=== PATIENT | female | born 1935 | race Caucasian/White ===

== ENCOUNTER 2016-07-20 11:19 | Emergency (ER) | payer MEDICARE ==
[2016-07-20 12:17] VITALS: BP 122/60
--- NOTE | 2016-07-20 12:39 | UC ---
Lower Extremity/Ankle HPI - HPI Summary HPI Summary: believes she twisted her ankle a few days ago---did not fall has lateral right pain and calf pain - History of Current Complaint Chief Complaint: UCLowerExtremity Stated Complaint: ANKLE INJURY Time Seen by Provider: 07/20/16 12:30 Hx Obtained From: Patient, Family/Group Insurance Special Agent ?: No Onset/Duration: Sudden Onset, Lasting Days - 4, Still Present Severity Initially: Moderate Severity Currently: Moderate Pain Intensity: 4 Pain Scale Used: 0-10 Numeric Aggravating Factor(s): Standing, Ambulation Alleviating Factor(s): Rest, Elevation Able to Bear Weight: Yes - with walker and kelly wrap - Allergies/Home Medications Allergies/Adverse Reactions: Allergies Allergy/AdvReac Type Severity Reaction Status Date / Time Codeine Allergy Severe Hives Verified 01/08/14 07:52 ANESTHETICS, GENERAL AdvReac Unknown Altered Uncoded 01/08/14 07:53 Mental Status PMH/Surg Hx/FS Hx/Imm Hx Previously Healthy: No Endocrine History Of: Reports: Thyroid Disease - HYPOTHYROID Denies: Diabetes Cardiovascular History Of: Reports: Cardiac Disorders - prolapsed heart valve, "weakening of cardiac muscle r/t radiation " Denies: Hypertension, Pacemaker/ICD, Congestive Heart Failure, Deep Vein Thrombosis Respiratory History Of: Reports: Pneumonia Denies: COPD, Asthma, Pulmonary Embolism GI/ History Of: Reports: Ulcer - 15 YRS AGO, Gall Bladder Disease Denies: Gastrointestinal Bleed, Kidney Stones, Renal Disease Neurological History Of: Denies: TIA, CVA, Dementia, Seizures, Migraine Psychological History Of: Denies: Anxiety, Depression, Bipolar Disorder, Schizophrenia Cancer History Of: Reports: Breast Cancer - LEFT 2008 Denies: Lung Cancer Other History Of: Anticoagulant Therapy - Surgical History Surgical History: Yes Surgery Procedure, Year, and Place: lt hip replacement total hysterectomy lt elbow with a plate in it lt knee replacement rt knee replacement appendix gallbladder lt lumpectomy - Family History Known Family History: Positive: Cardiac Disease, Hypertension - Social History Occupation: Retired Lives: With Family Alcohol Use: None Substance Use Type: None Smoking Status (MU): Former Smoker Have You Smoked in the Last Year: No - Immunization History Most Recent Influenza Vaccination: 2012 Most Recent Tetanus Shot: UTD Most Recent Pneumonia Vaccination: NEVER Review of Systems Constitutional: Negative Skin: Negative Eyes: Negative ENT: Negative Respiratory: Negative Cardiovascular: Negative Gastrointestinal: Negative Genitourinary: Negative Motor: Negative Neurovascular: Negative Musculoskeletal: Arthralgia - Right ankle, Myalgia - Right CAlf Neurological: Negative Psychological: Negative All Other Systems Reviewed And Are Negative: Yes Physical Exam Triage Information Reviewed: Yes Appearance: Well-Nourished, Ill-Appearing - chronic illness, Pain Distress - mild Vital Signs: Initial Vital Signs Temp 97.7 F 07/20/16 12:12 Pulse 109 07/20/16 12:12 Resp 18 07/20/16 12:12 BP 122/60 07/20/16 12:12 Pulse Ox 97 07/20/16 12:12 Vital Signs Reviewed: Yes Eye Exam: Normal Eyes: Positive: Conjunctiva Clear ENT Exam: Normal ENT: Positive: Normal ENT inspection, Hearing grossly normal. Negative: Nasal congestion, Nasal drainage, Trismus, Muffled/hoarse voice Neck exam: Normal Neck: Positive: Supple, Nontender, No Lymphadenopathy Respiratory Exam: Normal Respiratory: Positive: Chest non-tender, Lungs clear, Normal breath sounds, No respiratory distress, No accessory muscle use Cardiovascular Exam: Normal Cardiovascular: Positive: RRR, No Murmur, Pulses Normal, Brisk Capillary Refill Musculoskeletal Exam: Normal Musculoskeletal: Positive: Strength Intact, ROM Intact, No Edema Neurological Exam: Normal Neurological: Positive: Alert, Muscle Tone Normal Psychological Exam: Normal Psychological: Positive: Normal Response To Family, Abnormal Response To Family Skin Exam: Normal Diagnostics - Laboratory Diagnostic Studies Completed/Ordered: ultra sound --negative for DVT - Radiology No standard instances Xray Interpretation: No Acute Changes Radiology Interpretation Completed By: ED Physician, Radiologist Re-Evaluation - Re-Evaluation First Eval Change: Improved - kelly and gel applied home with family in good contition Lower Extremity Course/Dx - Course Course Of Treatment: kelly, gel, walker, ibuprofen follow with PCP prn - Differential Dx/Diagnosis Differential Diagnosis/HQI/PQRI: Contusion, DVT, Fracture (Closed), Sprain, Strain Provider Diagnoses: Right ankle sprain Discharge - Discharge Plan Condition: Stable Disposition: HOME Patient Education Materials: Ibuprofen (By mouth), Ankle Sprain (ED), RICE Therapy (ED) Referrals: Adelaide Ladd MD [Primary Care Provider] - If Needed
--- NOTE | 2016-07-20 13:56 | RAD ---
INDICATION: Right ankle injury. TECHNIQUE: 3 views of the right ankle were obtained. FINDINGS: The bones are in normal alignment. No fracture is seen. Joint spaces appear maintained. IMPRESSION: NO EVIDENCE FOR FRACTURE.
--- NOTE | 2016-07-20 13:59 | RAD ---
INDICATION: Right lower leg injury. TECHNIQUE: 2 views of the right lower leg were obtained. FINDINGS: The patient is status post total knee replacement surgery. The bones and prostheses are in normal alignment. No fracture is seen. IMPRESSION: Postsurgical changes, no evidence for fracture.
--- NOTE | 2016-07-20 14:42 | RAD ---
INDICATION: Right calf pain, history of breast cancer, injury. COMPARISON: There are no prior studies available for comparison. TECHNIQUE: Multiple real-time, color flow and Doppler tracings of the right lower extremity were obtained. FINDINGS: The common femoral, femoral, profunda femoral and popliteal veins all demonstrate normal compressibility, augmentation with compression and phasic response with respiration. The posterior tibial and peroneal veins demonstrate normal compressibility and augmentation with compression. IMPRESSION: NO EVIDENCE FOR DEEP VENOUS THROMBOSIS.
== END 2016-07-20 15:15 | disposition home or self-care (01) ==
LOC: UCEAST 11:19
DX: S93.401A Sprain of unspecified ligament of right ankle, initial encounter (principal); X50.1XXA Overexertion from prolonged static or awkward postures, initial encounter; Y93.9 Activity, unspecified; Y92.9 Unspecified place or not applicable; Z88.6 Allergy status to analgesic agent; Z88.4 Allergy status to anesthetic agent; Z96.642 Presence of left artificial hip joint; Z96.653 Presence of artificial knee joint, bilateral; Z87.891 Personal history of nicotine dependence
CPT/HCPCS: 99213; G0463

== ENCOUNTER 2016-11-10 12:17 | Observation (INO) | payer MEDICARE ==
[2016-11-10 13:27] LABS: Hematocrit 39 % (35-47); Hemoglobin 12.8 g/dl (12.0-16.0); Mean Corpuscular HGB Conc 33 g/dl (31-36); Mean Corpuscular Hemoglobin 31 pg (27-31); Mean Corpuscular Volume 93 fL (80-97); Mean Platelet Volume 8 um3 (7.4-10.4); Red Blood Count 4.15 10^6/ul (4.0-5.4); Red Cell Distribution Width 13 % (10.5-15); White Blood Count 5.4 10^3/ul (3.5-10.8)
--- NOTE | 2016-11-10 13:34 | RAD ---
HISTORY: Dizziness COMPARISONS: September 20, 2014 VIEWS:1: Single frontal portable view of the chest at 1:15 PM FINDINGS: LINES AND TUBES: None. CARDIOMEDIASTINAL SILHOUETTE: The cardiomediastinal silhouette is normal for portable technique. PLEURA: The costophrenic angles are sharp. No pleural abnormalities are noted. LUNG PARENCHYMA: There is hyperinflation. There are fibrotic changes of the left upper lung, similar to previous examinations. ABDOMEN: The upper abdomen is clear. There is no subphrenic gas. BONES AND SOFT TISSUES: No bone or soft tissue abnormalities are noted. IMPRESSION: COPD.
[2016-11-10 13:47] LABS: Albumin 3.4 g/dL (3.2-5.2); BUN/Creatinine Ratio 13.3 (8-20); Calcium 9.6 mg/dL (8.6-10.3); EGFR African American 77.7 (>60); EGFR Non-African American 60.4 (>60); Globulin 3.1 g/dL (2-4); Potassium 4.4 mmol/L (3.5-5.0); Total Bilirubin 0.7 mg/dL (0.2-1.0); Total Protein 6.5 g/dL (6.4-8.9)
[2016-11-10 13:48] LABS: Troponin I 0.01 ng/mL (<0.04)
--- NOTE | 2016-11-10 13:52 | RAD ---
INDICATION: Dizziness. Remote CVA COMPARISON: CT brain November 29, 2015 TECHNIQUE: Noncontrast axial source images were acquired from the skull base to the vertex. FINDINGS: Ventricles/sulci: There is cortical atrophy with compensatory dilatation of the CSF spaces. Brain parenchyma: There is no acute focal parenchymal finding, evidence of intracranial mass, or intracranial mass effect. There is encephalomalacia in the left posterior parietal and occipital lobes consistent with prior infarct. Intracranial hemorrhage:None. Extra-axial spaces: There are no abnormal extra axial fluid collections or evidence of extra-axial mass. Calvarium: There is no calvarial fracture or other calvarial abnormality. Scalp: There is no evidence of scalp or extracalvarial soft tissue abnormality. Paranasal sinuses/mastoid: The paranasal sinuses and mastoid air cells are clear. Other: None. IMPRESSION: NO ACUTE INTRACRANIAL FINDINGS. SEQUELA OF PRIOR VASCULAR INSULT.
[2016-11-10 14:09] LABS: TSH (Thyroid Stimulating Horm) 0.06 mcIU/mL (0.34-5.60)
[2016-11-10 14:26] LABS: Urine Bacteria Absent (Absent); Urine Bilirubin Negative (Negative); Urine Glucose Negative (Negative); Urine Nitrite Negative (Negative)
[2016-11-10] MEDS ORDERED: Ondansetron INJ* 2 MG/ML VIAL IV ONE (15:36)
[2016-11-10] MEDS ORDERED: HYDROmorphone* 1 MG/ML 1 ML SYR IV ONE (15:36)
[2016-11-10] MEDS ORDERED: Ondansetron INJ* 2 MG/ML VIAL IV PRN (16:35)
[2016-11-10] MEDS ORDERED: Levothyroxine TAB* 150 MCG TAB PO SCH (17:00)
[2016-11-10 17:19] LABS: T4 7.58 mcg/mL (6.09-12.23)
[2016-11-10 17:23] LABS: Free T3 3.5 pg/mL (2.5-3.9)
[2016-11-10 17:27] LABS: Total T3 0.8 ng/mL (0.87-1.78)
[2016-11-10 17:28] LABS: Free T4 1.32 ng/dL (0.61-1.12)
[2016-11-10] MEDS ORDERED: Donepezil TAB* 5 MG PO SCH (18:00)
[2016-11-10] MEDS: Acetaminophen TAB* 325 MG PO PRN (18:10)
[2016-11-10] MEDS: Meclizine TAB* 12.5 MG PO SCH ×2 (18:10→21:57)
--- NOTE | 2016-11-10 20:47 | HP ---
HISTORY AND PHYSICAL: DATE OF ADMISSION: 11/10/16 PRIMARY CARE PROVIDER: Dr. Ladd. ATTENDING PHYSICIAN WHILE IN THE HOSPITAL: Dr. Chao Colunga *(report dictated by Dylan Arcos NP) CHIEF COMPLAINT: Dizziness. HISTORY OF PRESENT ILLNESS: Ms. Vasquez is a 81-year-old female patient. She carries a history of hypothyroidism, history of TIA, CVA x2, AFib, breast cancer, and history of depression. She comes into the ER today stating that she woke up in the middle of the night last night and had an episode where she felt dizzy, she felt like the room was spinning. She went to the bathroom. When she sat down, she felt okay. However, when she got back up and went back to the bedroom she felt dizzy again. She went and sat down and lied down in her bed, remained still and she felt fine, but if she moves or stood up at all she became dizzy again. The patient was evaluated today by her friend, Lake, who has concerned and had her come into the hospital. She says when she was feeling dizzy, she became nauseous. She also describes having a headache. It is not the worst of her life, but it feels like her head is in a vice and it is a pressure, squeezing pain. She denies having any recent fevers or chills. No recent respiratory type symptoms, no cough, no runny nose, no sore throat. Denies having any ear pain, or discharge or any chest discomfort. She states she did not lose consciousness, but there was concern because she had been having the dizzy spell. She has been having dizzy spells off and on for sometime and has been following closely with Dr. Prince in the outpatient setting , but the daughter was concerned today and they came into the ER and was evaluated, and because of the dizziness we were asked to evaluate for admission. PAST MEDICAL HISTORY: Significant for: 1. Hypothyroidism. 2. Depression. 3. Breast cancer. 4. TIA. 5. CVA x2. 6. AFib. PAST SURGICAL HISTORY: 1. The patient has had right and left knee replacements. 2. Lumpectomy. 3. Left total hip arthroplasty. 4. Cholecystectomy. 5. Hysterectomy. 6. ORIF of the left elbow. HOME MEDICATIONS: Include: 1. Zantac 150 mg p.o. daily. 2. Multivitamin 1 tablet daily. 3. Metoprolol 25 mg in the morning and 12.5 mg at bedtime. 4. Lisinopril 5 mg daily. 5. Synthroid 150 mcg p.o. 6 times a week. 6. Aricept 5 mg daily. 7. Celexa 40 mg daily. 8. Caltrate 1 tablet p.o. daily. 9. Aspirin 81 mg a day. ALLERGIES: Her allergies to medications include CODEINE. FAMILY HISTORY: Her mother had a history of cancer and diabetes. Father had a history of COPD. SOCIAL HISTORY: The patient does not smoke. She does not drink alcohol. She lives at [facility]. Surrogate decision maker is her daughter. REVIEW OF SYSTEMS: There is no documented fever. She denies having any significant weight change. There was no double vision. There is no ear discharge. Denied any rhinorrhea. No sore throat, no thyroid enlargement. Denied having any chest pain. There is no orthopnea. There is no nocturnal dyspnea. There is no abdominal pain. No nausea, no vomiting, no dysuria, no frequency, no loss of consciousness. No pruritus. No skin ulcerations. Review of 14 systems completed, all others negative. PHYSICAL EXAMINATION GENERAL: At this time, Ms. Vasquez is a 81-year-old female patient. She does not appear to be in any acute distress. She is sitting in the ER stretcher. VITAL SIGNS: Reveals blood pressure 138/59, pulse 72, respirations 20, O2 sat 96%, temperature 98.6. HEENT: Head is atraumatic and normocephalic. Eyes: EOMs are intact. Sclerae anicteric, not pale. Throat: Oral mucosa appears to be moist. No oropharyngeal erythema. NECK: Supple. LUNGS: Clear to auscultation. No wheezes, rales, or rhonchi. HEART: Sounds S1, S2. Regular rate and rhythm. No murmurs, rubs, or gallops. ABDOMEN: Soft, flat, nontender. Bowel sounds present. EXTREMITIES: Pulses 2+ throughout. She is able to move all 4 extremities with 5/5 strength. NEUROLOGIC: The patient is awake, she is alert, she is oriented x3. Her speech is clear. Tongue midline. Business Integration Manager are equal. Business Integration Manager intact bilaterally. [id number] intact bilaterally. She had no nystagmus on exam. Cranial nerves are intact. SKIN: Intact. LABORATORY DATA: Today revealed WBC of 5.4, RBC 4.15, hemoglobin 12.8, hematocrit 39, platelet count 110. Sodium 137, potassium of 4.4, chloride of 105, bicarb 28, BUN 12, creatinine 0.90, glucose 100, lactic 1.1, calcium 9.6, total bili 2.0, AST 0.7, ALT 14, alk phos 7, troponin 0.01. Albumin 3.4, TSH of 0.06. Urine showed 3+ leukocyte esterase, 2+ wbc, present squamous epithelial cells. She had an EKG obtained today which revealed a normal sinus rhythm, rate of 67, with PVC. No ST elevations or T-wave inversions were noted. She had a chest x-ray obtained today, showed COPD, but no acute infiltrate on my exam or my review or any acute effusions. CT of the brain showed no acute intracranial findings, sequelae of prior vascular infarct. She had a brain MRI at the end of September which showed left occipital and right anterior partial encephalomalacia consistent with remote infarct. Chronic lacunar infarct to the inferior cerebellar hemisphere bilaterally. Multifocal elevated T2 FLAIR signal in the periventricular and subcortical white matter nonspecific, but suggestive of chronic small vessel ischemic disease. There was a CTA of the head and of the neck which impression: No aneurysm, vascular malformation, occlusion or stenosis of the visualized intracranial circulation. No intracranial artery stenosis by NASCET criteria. Left parietooccipital encephalomalacia. Old medical records reviewed. ASSESSMENT AND PLAN: Ms. Vasquez is a 81-year-old female patient coming into the hospital today with complaints of dizziness. On evaluation in the ER, there was concern because of the dizziness that may represent possible stroke, so the hospitalist service was asked to evaluate for admission. She will be admitted under observation status for: 1. Dizziness. The dizziness is very positional. On exam even just moving her bed, she was becoming dizzy. I question if this may be related to vertigo. I do not see any obvious signs of infection or recent infection to suggest maybe a labyrinthitis. My plan at this point would be to go ahead and try meclizine standing, continue ambulation when she is on this and see if we can improve her symptoms. If we can, then I would consider getting a neurology consult tomorrow and possibly repeating the MRI, but she just had one a few months ago, so I do not see the utility of it at that point. 2. Hypothyroidism. Her TSH is low, so I am going to check free T3 and T4. We may need to adjust her Synthroid. She can follow this in the outpatient setting. 3. Depression. Continue supportive care. 4. History of breast cancer. Follow with her oncologist. 5. History of transient ischemic attack and cerebrovascular accident. Continue with secondary prevention. She is on an aspirin. 6. History of atrial fibrillation. Appears to be in sinus rhythm at this point. One may consider possibly putting her on a blood thinner, but I will defer this to the primary. She certainly has that risk for high CHADS-VASC score, which she would qualify for blood thinners. We will continue the Toprol for rate control. 7. Hypertension. Continue her lisinopril. 8. History of dementia. I do see that she is on Aricept. It is mild dementia. We will go ahead and continue supportive care. 9. DVT prophylaxis. I have ordered heparin subcu. 10. Code status: She is DNR. 11. Fluids electrolytes, and nutrition. She can have a regular diet. TIME SPENT: Time spent on the admission was approximately 60 minutes, greater than half the time was spent [id number] with the patient obtaining my history and physical, and the other half time was spent going over the plan of care with patient and implementing plan of care. I did discuss the plan of care with my attending, Dr. Colunga, he is in agreement. DYLAN ARCOS NP CC: Dr. Ladd * [id number]/[facility] #: [id number] YANI
[2016-11-10] MEDS ORDERED: Metoprolol Succinate XL TAB* 25 MG PO SCH (21:00)
[2016-11-10] MEDS: Heparin VIAL(*) 5000 UNITS/ML VIAL (FIVE THOUSAND) SUBCUT SCH (21:57)
[2016-11-11] MEDS: Acetaminophen TAB* 325 MG PO PRN (04:45)
[2016-11-11] MEDS: Heparin VIAL(*) 5000 UNITS/ML VIAL (FIVE THOUSAND) SUBCUT SCH (05:35)
[2016-11-11] MEDS: Meclizine TAB* 12.5 MG PO SCH (05:35)
[2016-11-11 06:41] LABS: Hematocrit 37 % (35-47); Hemoglobin 12.3 g/dl (12.0-16.0); Mean Corpuscular HGB Conc 33 g/dl (31-36); Mean Corpuscular Hemoglobin 31 pg (27-31); Mean Corpuscular Volume 93 fL (80-97); Mean Platelet Volume 8 um3 (7.4-10.4); Red Blood Count 3.98 10^6/ul (4.0-5.4); Red Cell Distribution Width 13 % (10.5-15); White Blood Count 5.7 10^3/ul (3.5-10.8)
[2016-11-11 06:42] LABS: Add Diff/Slide Review? Slide Review Added; Comments Flag Yes
[2016-11-11 06:44] LABS: BUN/Creatinine Ratio 14.4 (8-20); Calcium 9.3 mg/dL (8.6-10.3); EGFR African American 77.7 (>60); EGFR Non-African American 60.4 (>60); Potassium 3.8 mmol/L (3.5-5.0)
[2016-11-11 08:17] VITALS: BP 124/50
[2016-11-11] MEDS ORDERED: Metoprolol Succinate XL TAB* 25 MG PO SCH (09:00)
[2016-11-11] MEDS ORDERED: Aspirin EC Low Dose* 81 MG TAB.EC PO SCH (09:00)
[2016-11-11] MEDS ORDERED: Citalopram TAB* 40 MG PO SCH (09:00)
[2016-11-11] MEDS ORDERED: Lisinopril TAB* 10 MG PO SCH (09:00)
--- NOTE | 2016-11-11 11:29 | DS ---
DATE OF ADMISSION: 11/10/2016. DATE OF DISCHARGE: 11/11/2016. PRIMARY CARE PHYSICIAN: Dr. Ladd. PRIMARY NEUROLOGIST: Dr. Prince. DISCHARGING PROVIDER: PARAG Paris. SUPERVISING PHYSICIAN: Dr. Michell Finney* (dictated by PARAG Paris). PRIMARY DISCHARGE DIAGNOSES: 1. Dizziness - likely multifactorial, but asymptomatic at the time of discharge. 2. Depressed TSH - atrogenic, recommend decreasing dose of Levothyroxine and repeat TSH and free T4 in four to six weeks. SECONDARY DISCHARGE DIAGNOSES: 1. Depression. 2. History of breast cancer. 3. History of TIA and CVA. 4. History of atrial fibrillation. 5. Hypertension. 6. Mild dementia. DISCHARGE MEDICATIONS: 1. Aspirin 81 mg p.o. daily. 2. Celexa 40 mg p.o. daily. 3. Donepezil 5 mg p.o. daily. 4. Flonase two sprays in both nostrils once daily. 5. Levothyroxine 112 mcg p.o. daily. 6. Lisinopril 5 mg p.o. daily. 7. Meclizine 12.5 mg p.o. q.8 hours as needed for dizziness. 8. Metoprolol succinate 25 mg in the morning and 12.5 mg p.o. at bedtime. 9. Multivitamin one tablet p.o. daily. 10. Ranitidine 150 mg p.o. daily. Medication changes: 1. Decrease Levothyroxine from 150 to 112 mcg daily. 2. Start Fluticasone nasal spray. 3. Start Meclizine as needed. HOSPITAL IMAGIN. CT of the brain shows no acute process. She has evidence of prior CVA. 2. Chest x-ray shows stigmata of COPD type changes, but no acute process. 3. EKG shows a sinus rhythm with PVC's. HOSPITAL COURSE: This is a 81-year-old female with mild dementia as well as hypothyroidism, prior TIA's and CVA, as well as atrial fibrillation, prior history of breast cancer, and depression who presented to the emergency department with complaints of dizziness. The patient awoke yesterday morning with severe dizziness in an upright position. Symptoms would improve when lying flat or sitting still. The patient has had difficulty with dizziness in the past and has been evaluated by neurologist Dr. Prince. She did have an MRI completed approximately six weeks ago which demonstrated multiple prior infarcts and evidence of chronic small vessel ischemia, but no acute change at that time. It is unclear why patient presented to the emergency department for this episode of dizziness. It seems that it may have been more severe than her prior episodes. Initial imaging in the emergency department, which included a CT of the brain showed no acute process. Initial EKG showed a sinus rhythm with occasional PVC' s. Her initial labs were unremarkable with the exception of a low TSH at 0.06. The patient does carry the diagnosis of hypothyroidism and is on replacement therapy. Orthostatic vital signs completed in the emergency department were not technically positive, but she did have a drop of 17 mmHg from a lying to standing position. Heart rate only increased by five beats per minute between a lying and standing position. The patient was subsequently admitted to a period of observation due to her complaints of dizziness and history of prior cerebral ischemia. The patient remained asymptomatic overnight. No new neurological complaints. The patient reported when she awoke this morning, she did not have any episodes of dizziness. She was able to ambulate to the bathroom with the use of a walker without becoming dizzy. She states that she has a fullness sensation in her head, which is also associated with her dizziness and that sensation has persisted this morning, but the dizziness has resolved. She does report chronic sinus complaints. She is not on nasal spray or other intervention. Neurologic evaluation was essentially within normal limits. The patient does seem to have some mild cognitive impairment, but is accompanied by her daughter at the time of evaluation. Ear exam demonstrated a clear external auditory canal, but she does have small serous effusion bilaterally. In regards to etiology of her dizziness, this is likely multifactorial. She did improve with use of scheduled Meclizine and does have bilateral effusion appreciated, increasing the likelihood that this is at least partially a result of vertigo or perhaps a labyrinthitis. Her TSH is also depressed with an elevated free T4 which may also cause dizziness in an elderly female as well. DISPOSITION: The patient is being discharged to home. She is a resident at the [facility] and does not have any additional discharge needs. She seems to be back to baseline. Recommend medication changes as outlined above, including decreasing Levothyroxine using prn Meclizine and daily Flonase. Recommend follow- up with her primary care provider, especially repeat TSH and free T4 in four to six weeks, as well as follow-up with Dr. Prince regarding this hospital admission and subsequent symptoms. PARAG PARIS CC: Dr. Ladd; Dr. Prince* [id number]/[facility] #: [id number] [facility]
--- NOTE | 2016-11-11 20:11 | ED ---
Lien Meeks Matthew, scribed for Jeramie Barker MD on 11/10/16 at 1240 . Dizziness - HPI Summary HPI Summary: A 81 y/o female presents to the ED with dizziness since 07:00 this morning. The dizziness is described as lightheadedness. Associated symptoms include unsteady gait and lightheadedness. The patient denies chest pain, SOB, weakness, and headache. She states that her head feels "full". The patient states that she felt fine yesterday. - History Of Current Complaint Chief Complaint: EDDizziness Stated Complaint: UNABLE TO WALK Time Seen by Provider: 11/10/16 12:33 Hx Obtained From: Patient Onset/Duration: Still Present Timing: Constant Severity Initially: Moderate Severity Currently: Moderate Character: Lightheaded, Dizzy Associated Signs And Symptoms: Positive: Unsteady Gait, Other: - lightheadedness. Negative: Chest Pain, SOB - Allergies/Home Medications Allergies/Adverse Reactions: Allergies Allergy/AdvReac Type Severity Reaction Status Date / Time Codeine Allergy Severe Hives Verified 01/08/14 07:52 ANESTHETICS, GENERAL AdvReac Unknown Altered Uncoded 01/08/14 07:53 Mental Status Home Medications: Home Medications Calcium Carbonate-Cholecalcife [Caltrate 600+D3 Soft Chew 600-800 mg-Unit] 1 chw PO DAILY 11/10/16 [History Confirmed 11/10/16] Donepezil TAB* [Aricept 5 MG TAB*] 5 mg PO QPM 11/10/16 [History Confirmed 11/10] Metoprolol Succinate XL TAB* [Toprol XL TAB*] 12.5 mg PO BEDTIME 11/10/16 [ History Confirmed 11/10/16] Metoprolol Succinate XL TAB* [Toprol XL TAB*] 25 mg PO QAM 11/10/16 [History Confirmed 11/10/16] Ranitidine TAB (NF) [Zantac TAB (NF)] 150 mg PO DAILY 11/10/16 [History Confirmed 11/10/16] PMH/Surg Hx/FS Hx/Imm Hx Endocrine/Hematology History: Reports: Hx Anticoagulant Therapy, Hx Blood Transfusions, Hx Thyroid Disease - HYPOTHYROID, Hx Anemia Denies: Hx Blood Disorders, Hx Bone Marrow Disease, Hx Diabetes, Hx Systemic Lupus Erythematosus, Hx Sickle Cell Disease, Hx Unexplained Bleeding, Other Endocrine/Hematological Disorders Cardiovascular History: Reports: Hx Angina, Other Cardiovascular Problems/ Disorders - JUST STARTED METOPROLOL FOR EXTRA BEATS Denies: Hx Aneurysm, Hx Angioplasty, Hx Auto Implanted Cardiovert Defib, Hx Cardiac Arrest, Hx Cardiomegaly, Hx Congenital Heart Disease, Hx Congestive Heart Failure, Hx Coronary Artery Disease, Hx Deep Vein Thrombosis, Hx Embolism , Hx Hypercholesterolemia, Hx Hypotension, Hx Hypertension, Hx Pacemaker/ICD, Hx Peripheral Vascular Disease, Hx Rheumatic Fever, Hx Syncope, Hx Valvular Heart Disease Respiratory History: Reports: Hx Pneumonia, Hx Seasonal Allergies Denies: Hx Asthma, Hx Chronic Bronchitis, Hx Chronic Obstructive Pulmonary Disease (COPD), Hx Cystic Fibrosis, Hx Lung Cancer, Hx Pleural Effusion, Hx Pulmonary Edema, Hx Pulmonary Embolism, Hx Sleep Apnea, Other Respiratory Problems/Disorders GI History: Reports: Hx Gall Bladder Disease, Hx Ulcer - 15 YRS AGO Denies: Hx Cirrhosis, Hx Crohn's Disease, Hx Diverticulosis, Hx Gastroesophageal Reflux Disease, Hx Gastrointestinal Bleed, Hx Hiatal Hernia, Hx Irritable Bowel, Hx Jaundice, Hx Obstructive Bowel, Hx Ileostomy, Hx Pyloric Stenosis, Other GI Disorders History: Denies: Hx Acute Renal Failure, Hx Chronic Renal Failure, Hx Dialysis, Hx Kidney Infection, Hx Kidney Stones, Hx Renal Disease, Other Problems/ Disorders Musculoskeletal History: Reports: Hx Rheumatoid Arthritis, Hx Orthopedic Injury , Hx Osteoporosis Denies: Hx Arthritis, Hx Back Problems, Hx Bursitis, Hx Congenital Bone Abnormalities, Hx Fibromyalgia, Hx Gout, Hx Scoliosis, Hx Tendonitis, Other Musculoskeletal History Sensory History: Reports: Hx Cataracts - s/p cataract surgery, Hx Contacts or Glasses Denies: Hx Eye Injury, Hx Eye Prosthesis, Hx Glaucoma, Hx Legally Blind, Hx Macular Degeneration, Hx Vision Problem, Hx Deafness, Hx Hearing Aid, Hx Hearing Problem, Other Sensory Impairments Opthamlomology History: Reports: Hx Cataracts - s/p cataract surgery, Hx Contacts or Glasses Denies: Hx Eye Injury, Hx Eye Prosthesis, Hx Glaucoma, Hx Legally Blind, Hx Macular Degeneration, Hx Vision Problem, Other Sensory Impairments Neurological History: Denies: Hx Dementia, Hx Developmental Delay, Hx Headaches, Hx Migraine, Hx Nerve Disease, Hx Seizures, Hx Spinal Cord Injury, Hx Transient Ischemic Attacks (TIA), Other Neuro Impairments/Disorders Psychiatric History: Denies: Hx Anxiety, Hx Attention Deficit Hyperactivity Disorder, Hx Eating Disorder, Hx Depression, Hx Panic Disorder, Hx Post Traumatic Stress Disorder, Hx Inpatient Treatment, Hx Community Mental Health Tx, Hx Schizophrenia, Hx Bipolar Disorder, Hx Suicide Attempt, Hx of Violent Episodes Against Others, Hx Substance Abuse, Other Psychiatric Issues/Disorders - Cancer History Cancer Type, Location and Year: lt breast ca, Hx Chemotherapy: Yes Hx Radiation Therapy: Yes - Surgical History Surgery Procedure, Year, and Place: lt hip replacement, total hysterectomy lt elbow with a plate in it lt knee replacement rt knee replacement appendix gallbladder lt lumpectomy, [facility] [employer] [facility] RECORDER. PLACED AT [facility] [place] Hx Anesthesia Reactions: Yes - ALLERGIC TO LIDOCAINE Infectious Disease History: Denies: Hx Clostridium Difficile, Hx Hepatitis, Hx Human Immunodeficiency Virus (HIV), Hx of Known/Suspected MRSA, Hx Shingles, Hx Tuberculosis, Hx Known/ Suspected VRE, Hx Known/Suspected VRSA, History Other Infectious Disease, Traveled Outside the [place] in Last 30 Days - Family History Known Family History: Positive: Cardiac Disease, Hypertension - Social History Alcohol Use: None Substance Use Type: Reports: None Smoking Status (MU): Former Smoker Have You Smoked in the Last Year: No Review of Systems Constitutional: Negative Eyes: Negative ENT: Negative Cardiovascular: Negative Negative: Chest Pain Respiratory: Negative Negative: Shortness Of Breath, Cough Gastrointestinal: Negative Genitourinary: Negative Musculoskeletal: Negative Skin: Negative Neurological: Other - lightheadedness; unsteady gait Negative: Headache, Weakness Psychological: Normal All Other Systems Reviewed And Are Negative: Yes Physical Exam Triage Information Reviewed: Yes Vital Signs On Initial Exam: Initial Vitals Temp Pulse Resp BP Pulse Ox 98.6 F 60 22 170/73 93 11/10/16 12:23 11/10/16 12:23 11/10/16 12:23 11/10/16 12:23 11/10/16 12:23 Vital Signs Reviewed: Yes Appearance: Positive: Well-Appearing, No Pain Distress Skin: Positive: Warm, Dry Head/Face: Positive: Normal Head/Face Inspection Eyes: Positive: EOMI, NARESH ENT: Positive: Normal ENT inspection Neck: Positive: Supple, Nontender Respiratory/Lung Sounds: Positive: Clear to Auscultation, Breath Sounds Present Cardiovascular: Positive: IRR. Negative: Murmur Abdomen Description: Positive: Nontender, Soft Bowel Sounds: Positive: Present Musculoskeletal: Positive: Strength/ROM Intact Neurological: Positive: Alert, Oriented to Person Place, Time Psychiatric: Positive: Affect/Mood Appropriate Diagnostics - Vital Signs Vital Signs Temp Pulse Resp BP Pulse Ox 11/10/16 12:23 98.6 F 60 22 170/73 93 - Laboratory Lab Results: Lab Results 11/10/16 11/10/16 11/10/16 Range/Units 13:10 13:10 13:10 WBC 5.4 (3.5-10.8) 10^3/ul RBC 4.15 (4.0-5.4) 10^6/ul Hgb 12.8 (12.0-16.0) g/dl Hct 39 (35-47) % MCV 93 (80-97) fL MCH 31 (27-31) pg MCHC 33 (31-36) g/dl RDW 13 (10.5-15) % Plt Count 110 L (150-450) 10^3/ul MPV 8 (7.4-10.4) um3 Neut % (Auto) 67.4 (38-83) % Lymph % (Auto) 22.3 L (25-47) % Door % (Auto) 9.0 (1-9) % Eos % (Auto) 0.8 (0-6) % Baso % (Auto) 0.5 (0-2) % Absolute Neuts (auto) 3.7 (1.5-7.7) 10^3/ul Absolute Lymphs (auto) 1.2 (1.0-4.8) 10^3/ul Absolute Monos (auto) 0.5 (0-0.8) 10^3/ul Absolute Eos (auto) 0 (0-0.6) 10^3/ul Absolute Basos (auto) 0 (0-0.2) 10^3/ul Absolute Nucleated RBC 0.01 10^3/ul Nucleated RBC % 0.1 Sodium 137 (133-145) mmol/L Potassium 4.4 (3.5-5.0) mmol/L Chloride 105 (101-111) mmol/L Carbon Dioxide 28 (22-32) mmol/L Anion Gap 4 (2-11) mmol/L BUN 12 (6-24) mg/dL Creatinine 0.90 (0.51-0.95) mg/dL Est GFR ( Amer) 77.7 (>60) Est GFR (Non-Af Amer) 60.4 (>60) BUN/Creatinine Ratio 13.3 (8-20) Glucose 100 (70-100) mg/dL Lactic Acid 1.1 (0.5-2.0) mmol/L Calcium 9.6 (8.6-10.3) mg/dL Magnesium 2.0 (1.9-2.7) mg/dL Total Bilirubin 0.70 (0.2-1.0) mg/dL AST 14 (13-39) U/L ALT 7 (7-52) U/L Alkaline Phosphatase 45 (34-104) U/L Troponin I 0.01 (<0.04) ng/mL Total Protein 6.5 (6.4-8.9) g/dL Albumin 3.4 (3.2-5.2) g/dL Globulin 3.1 (2-4) g/dL Albumin/Globulin Ratio 1.1 (1-3) TSH 0.06 L (0.34-5.60) mcIU/mL Free T4 1.32 H (0.61-1.12) ng/dL Thyroxine (T4) 7.58 (6.09-12.23) mcg/mL Free T3 3.50 (2.5-3.9) pg/mL Total T3 0.80 L (0.87-1.78) ng/mL Urine Color Urine Appearance Urine pH (5-9) Ur Specific [place] (1.010-1.030) Urine Protein (Negative) Urine Ketones (Negative) Urine Blood (Negative) Urine Nitrate (Negative) Urine Bilirubin (Negative) Urine Urobilinogen (Negative) Ur Leukocyte Esterase (Negative) Urine WBC (Auto) (Absent) Urine RBC (Auto) (Absent) Ur Squamous Epith Cells (Absent) Urine Bacteria (Absent) Urine Glucose (Negative) 11/10/16 Range/Units 13:52 WBC (3.5-10.8) 10^3/ul RBC (4.0-5.4) 10^6/ul Hgb (12.0-16.0) g/dl Hct (35-47) % MCV (80-97) fL MCH (27-31) pg MCHC (31-36) g/dl RDW (10.5-15) % Plt Count (150-450) 10^3/ul MPV (7.4-10.4) um3 Neut % (Auto) (38-83) % Lymph % (Auto) (25-47) % Door % (Auto) (1-9) % Eos % (Auto) (0-6) % Baso % (Auto) (0-2) % Absolute Neuts (auto) (1.5-7.7) 10^3/ul Absolute Lymphs (auto) (1.0-4.8) 10^3/ul Absolute Monos (auto) (0-0.8) 10^3/ul Absolute Eos (auto) (0-0.6) 10^3/ul Absolute Basos (auto) (0-0.2) 10^3/ul Absolute Nucleated RBC 10^3/ul Nucleated RBC % Sodium (133-145) mmol/L Potassium (3.5-5.0) mmol/L Chloride (101-111) mmol/L Carbon Dioxide (22-32) mmol/L Anion Gap (2-11) mmol/L BUN (6-24) mg/dL Creatinine (0.51-0.95) mg/dL Est GFR ( Amer) (>60) Est GFR (Non-Af Amer) (>60) BUN/Creatinine Ratio (8-20) Glucose (70-100) mg/dL Lactic Acid (0.5-2.0) mmol/L Calcium (8.6-10.3) mg/dL Magnesium (1.9-2.7) mg/dL Total Bilirubin (0.2-1.0) mg/dL AST (13-39) U/L ALT (7-52) U/L Alkaline Phosphatase (34-104) U/L Troponin I (<0.04) ng/mL Total Protein (6.4-8.9) g/dL Albumin (3.2-5.2) g/dL Globulin (2-4) g/dL Albumin/Globulin Ratio (1-3) TSH (0.34-5.60) mcIU/mL Free T4 (0.61-1.12) ng/dL Thyroxine (T4) (6.09-12.23) mcg/mL Free T3 (2.5-3.9) pg/mL Total T3 (0.87-1.78) ng/mL Urine Color Yellow Urine Appearance Clear Urine pH 8.0 (5-9) Ur Specific [place] 1.010 (1.010-1.030) Urine Protein Negative (Negative) Urine Ketones Negative (Negative) Urine Blood Negative (Negative) Urine Nitrate Negative (Negative) Urine Bilirubin Negative (Negative) Urine Urobilinogen Negative (Negative) Ur Leukocyte Esterase 3+ H (Negative) Urine WBC (Auto) 2+(11-20/hpf) H (Absent) Urine RBC (Auto) Absent (Absent) Ur Squamous Epith Cells Present H (Absent) Urine Bacteria Absent (Absent) Urine Glucose Negative (Negative) Result Diagrams: 11/11/16 06:09 11/11/16 06:09 Lab Statement: Any lab studies that have been ordered have been reviewed, and results considered in the medical decision making process. - Radiology CXR Xray Interpretation: Positive (See Comments) - IMPRESSION: COPD. Radiology Interpretation Completed By: Radiologist - CT Brain CT CT Interpretation: No Acute Changes - IMPRESSION: NO ACUTE INTRACRANIAL FINDINGS. SEQUELA OF PRIOR VASCULAR INSULT. CT Interpretation Completed By: Radiologist - EKG 12:33 Cardiac Rate: NL - 67 bpm EKG Rhythm: Sinus Rhythm Ectopy: PVCs Dizzy Course/Dx - Diagnoses Provider Diagnoses: Dizziness of unknown cause - Provider Notifications Discussed Care Of Patient with: Dr. Colunga (Hospitalist) at 15:54 -- Notified of patient's history and will admit the patient into his services. Discharge - Discharge Plan Condition: Stable Disposition: ADMITTED TO [facility] The documentation as recorded by the Lien briones Matthew accurately reflects the service I personally performed and the decisions made by , Jeramie Barker MD.
== END 2016-11-11 11:37 | disposition home or self-care (01) ==
LOC: ED 12:17 → MEDTELE 16:33
PROVIDERS: ADMIT Internal Medicine; ATTEND Hospitalist
DX: R42 Dizziness and giddiness (principal); R94.6 Abnormal results of thyroid function studies; F32.9 Major depressive disorder, single episode, unspecified; Z86.73 Personal history of transient ischemic attack (TIA), and cerebral infarction without residual deficits; I48.91 Unspecified atrial fibrillation; I10 Essential (primary) hypertension; I20.9 Angina pectoris, unspecified; F03.90 Unspecified dementia, unspecified severity, without behavioral disturbance, psychotic disturbance, mood disturbance, and anxiety; Z79.82 Long term (current) use of aspirin; Z79.899 Other long term (current) drug therapy; Z88.5 Allergy status to narcotic agent; Z79.01 Long term (current) use of anticoagulants; Z87.891 Personal history of nicotine dependence; R94.31 Abnormal electrocardiogram [ECG] [EKG]
CPT/HCPCS: 36415; 70450; 71010; 80048; 80053; 81003; 81015; 83605; 83735; 84436; 84439; 84443; 84479; 84481; 84484; 85025; 87077; 87086; 93005; 94760; 96372; 96374; 96375; 99284; A9270-GY; G0378; J1170; J1644; J2405

== ENCOUNTER 2017-10-15 10:27 | Observation (INO) | payer MEDICARE ==
[2017-10-15] MEDS ORDERED: NS 0.9% 1000 ML* 1,000 ML IV ONE (10:38)
[2017-10-15] MEDS ORDERED: Aspirin 81 mg CHEW TAB* 81 MG TAB.CHEW PO ONE (10:53)
--- NOTE | 2017-10-15 10:54 | RAD ---
HISTORY: Neurological changes COMPARISONS: November 10, 2016 TECHNIQUE: Multiple contiguous axial CT scans were obtained of the head without intravenous contrast. FINDINGS: HEMORRHAGE/INFARCT: There is no hemorrhage or acute infarct. MASSES/SHIFT: There is no mass or shift. EXTRA-AXIAL SPACES: There are no extra-axial fluid collections. SULCI AND VENTRICLES: The sulci and ventricles are normal in size and position for the patient's stated age. 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 BRAINSTEM: There are no focal parenchymal abnormalities. CEREBELLUM: There are no focal parenchymal abnormalities. VESSELS: The vessels are grossly normal. PARANASAL SINUSES: The paranasal sinuses are clear. ORBITS: The orbits are unremarkable. BONES AND SOFT TISSUE: There is stable minimal soft tissue swelling of the left frontal skull. OTHER: None IMPRESSION: NO ACUTE INTRACRANIAL PATHOLOGY. 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 PRELIMINARY FINDINGS WERE DISCUSSED WITH DR. WEAVER AT APPROXIMATELY 10:48 AM ON OCTOBER 15, 2017.
[2017-10-15 11:07] LABS: ABS Basophils 0 10^3/ul (0-0.2); ABS Eosinophils 0.1 10^3/ul (0-0.6); ABS Lymphocytes 1.2 10^3/ul (1.0-4.8); ABS Monocytes 0.5 10^3/ul (0-0.8); ABS Neutrophils 3.8 10^3/ul (1.5-7.7); ABS Nucleated RBC 0 10^3/ul; Eosinophil % 1.1 % (0-6); Hematocrit 39 % (35-47); Hemoglobin 12.8 g/dl (12.0-16.0); Lymphocyte % 21.6 % (25-47); Mean Corpuscular HGB Conc 33 g/dl (31-36); Mean Corpuscular Hemoglobin 30 pg (27-31); Mean Corpuscular Volume 90 fL (80-97); Mean Platelet Volume 6.7 um3 (7.4-10.4); Nucleated Red Blood Cells % 0; Platelet Count 180 10^3/ul (150-450); Red Blood Count 4.34 10^6/ul (4.0-5.4); Red Cell Distribution Width 14 % (10.5-15); White Blood Count 5.7 10^3/ul (3.5-10.8)
--- NOTE | 2017-10-15 11:07 | RAD ---
Indication: Code holden. Neurological changes. Comparison: November 10, 2016 Technique: Upright AP 1050 hours Report: Elevated lung volumes and both diffuse mild prominence of the interstitial markings and patchy rarefaction of the mid to upper lung zone interstitial markings. Costochondral calcifications noted. Chronic LEFT apical pleural-parenchymal scarring. No suspicious focal pulmonary lesion, compelling alveolar consolidation, pleural effusion, pneumothorax. Cardiac loop recorder noted. Upper normal heart size. Unremarkable central pulmonary vasculature. Mildly tortuous descending thoracic aorta. IMPRESSION: Stigmata of obstructive lung disease. No acute pulmonary or cardiac process evident.
[2017-10-15 11:27] LABS: EGFR Non-African American 57.3 (>60)
[2017-10-15 11:32] LABS: INR 0.87 (0.77-1.02)
[2017-10-15] MEDS ORDERED: Acetaminophen TAB* 325 MG PO PRN (12:22)
[2017-10-15] MEDS ORDERED: Ondansetron INJ* 2 MG/ML VIAL IV PRN (12:22)
[2017-10-15] MEDS ORDERED: Meclizine TAB* 12.5 MG PO PRN (12:27)
[2017-10-15 12:53] LABS: Urine Appearance Clear; Urine Blood 1+ (Negative); Urine Color Straw; Urine Ketones Negative (Negative); Urine Protein Negative (Negative); Urine Specific Gravity 1.006 (1.010-1.030); Urine Urobilinogen Negative (Negative)
[2017-10-15] MEDS: Heparin VIAL(*) 5000 UNITS/ML VIAL (FIVE THOUSAND) SUBCUT SCH ×2 (14:30→20:41)
[2017-10-15] MEDS: Metoprolol Succinate XL TAB* 25 MG PO SCH (14:30)
--- NOTE | 2017-10-15 15:25 | ED ---
Austin Meeks Julia, scribed for Bertin Haro MD on 10/15/17 at 1036 . Neurological HPI - HPI Summary HPI Summary: This patient is a 82 year old F BIBA to [facility] with a chief complaint of sudden occipital headache and dizziness described lightheaded since 08:00 this morning upon waking. EMS reports she felt lightheaded with an elevated blood pressure, a blood glucose of 85. They state she was able to ambulate with difficulty. Patient states she feels like she may fall over to either side while walking. Patient denies numbness, weakness, and urinary symptoms. She reports poor memory and ambulation with ease at baseline. Pt has a history of multiple TIAs. She is unsure if current symptoms are similar to previous symptoms. Upon evaluating old records, after initial evaluation, patient is taking Aricept and has baseline memory issues. - History of Current Complaint Stated Complaint: HEADACHE,DIZZINESS Time Seen by Provider: 10/15/17 10:29 Hx Obtained From: Patient, EMS Onset/Duration: Sudden Onset, Started hours ago Timing: Constant Neurological Deficit Location: Generalized Headache Location: Occipital (Right), Occipital (Left) Character: Lightheaded Syncope Context: Unwitnessed Associated Signs and Symptoms: Positive: Unsteady Gait, Headache - Additional Pertinent History Primary Care Physician: [id number] - Allergy/Home Medications Allergies/Adverse Reactions: Allergies Allergy/AdvReac Type Severity Reaction Status Date / Time codeine Allergy Hives Verified 10/15/17 12:07 anesthetics Allergy Altered Uncoded 10/15/17 12:07 Mental Status Home Medications: Home Medications Levothyroxine TAB* [Synthroid TAB*] 100 mcg PO .SIX DAYS A WEEK 10/15/17 [ History Confirmed 10/15/17] PMH/Surg Hx/FS Hx/Imm Hx Endocrine/Hematology History: Reports: Hx Anticoagulant Therapy, Hx Blood Transfusions, Hx Thyroid Disease - HYPOTHYROID, Hx Anemia Denies: Hx Blood Disorders, Hx Bone Marrow Disease, Hx Diabetes, Hx Systemic Lupus Erythematosus, Hx Sickle Cell Disease, Hx Unexplained Bleeding, Other Endocrine/Hematological Disorders Cardiovascular History: Reports: Hx Angina, Other Cardiovascular Problems/ Disorders - JUST STARTED METOPROLOL FOR EXTRA BEATS Denies: Hx Aneurysm, Hx Angioplasty, Hx Auto Implanted Cardiovert Defib, Hx Cardiac Arrest, Hx Cardiomegaly, Hx Congenital Heart Disease, Hx Congestive Heart Failure, Hx Coronary Artery Disease, Hx Deep Vein Thrombosis, Hx Embolism , Hx Hypercholesterolemia, Hx Hypotension, Hx Hypertension, Hx Pacemaker/ICD, Hx Peripheral Vascular Disease, Hx Rheumatic Fever, Hx Syncope, Hx Valvular Heart Disease Respiratory History: Reports: Hx Pneumonia, Hx Seasonal Allergies Denies: Hx Asthma, Hx Chronic Bronchitis, Hx Chronic Obstructive Pulmonary Disease (COPD), Hx Cystic Fibrosis, Hx Lung Cancer, Hx Pleural Effusion, Hx Pulmonary Edema, Hx Pulmonary Embolism, Hx Sleep Apnea, Other Respiratory Problems/Disorders GI History: Reports: Hx Gall Bladder Disease, Hx Ulcer - 15 YRS AGO Denies: Hx Cirrhosis, Hx Crohn's Disease, Hx Diverticulosis, Hx Gastroesophageal Reflux Disease, Hx Gastrointestinal Bleed, Hx Hiatal Hernia, Hx Irritable Bowel, Hx Jaundice, Hx Obstructive Bowel, Hx Ileostomy, Hx Pyloric Stenosis, Other GI Disorders History: Denies: Hx Acute Renal Failure, Hx Chronic Renal Failure, Hx Dialysis, Hx Kidney Infection, Hx Kidney Stones, Hx Renal Disease, Other Problems/ Disorders Musculoskeletal History: Reports: Hx Rheumatoid Arthritis, Hx Orthopedic Injury , Hx Osteoporosis Denies: Hx Arthritis, Hx Back Problems, Hx Bursitis, Hx Congenital Bone Abnormalities, Hx Fibromyalgia, Hx Gout, Hx Scoliosis, Hx Tendonitis, Other Musculoskeletal History Sensory History: Reports: Hx Cataracts - s/p cataract surgery, Hx Contacts or Glasses Denies: Hx Eye Injury, Hx Eye Prosthesis, Hx Glaucoma, Hx Legally Blind, Hx Macular Degeneration, Hx Vision Problem, Hx Deafness, Hx Hearing Aid, Hx Hearing Problem, Other Sensory Impairments Opthamlomology History: Reports: Hx Cataracts - s/p cataract surgery, Hx Contacts or Glasses Denies: Hx Eye Injury, Hx Eye Prosthesis, Hx Glaucoma, Hx Legally Blind, Hx Macular Degeneration, Hx Vision Problem, Other Sensory Impairments Neurological History: Reports: Hx Dementia, Hx Transient Ischemic Attacks (TIA) Denies: Hx Developmental Delay, Hx Headaches, Hx Migraine, Hx Nerve Disease, Hx Seizures, Hx Spinal Cord Injury, Other Neuro Impairments/Disorders Psychiatric History: Denies: Hx Anxiety, Hx Attention Deficit Hyperactivity Disorder, Hx Eating Disorder, Hx Depression, Hx Panic Disorder, Hx Post Traumatic Stress Disorder, Hx Inpatient Treatment, Hx Community Mental Health Tx, Hx Schizophrenia, Hx Bipolar Disorder, Hx Suicide Attempt, Hx of Violent Episodes Against Others, Hx Substance Abuse, Other Psychiatric Issues/Disorders - Cancer History Cancer Type, Location and Year: lt breast ca, Hx Chemotherapy: Yes - BREAST Hx Radiation Therapy: Yes - BREAST - Surgical History Surgery Procedure, Year, and Place: lt hip replacement;. total hysterectomy;. lt elbow with a plate;. lt knee replacement;. rt knee replacement;. appendix; . gallbladder;. lt lumpectomy;. [employer] REVEAL LINQ RECORDER. PLACED AT [facility] ; Hx Anesthesia Reactions: Yes - ALLERGIC TO LIDOCAINE - Immunization History Date of Tetanus Vaccine: UTD Date of Influenza Vaccine: UTD Infectious Disease History: Denies: Hx Clostridium Difficile, Hx Hepatitis, Hx Human Immunodeficiency Virus (HIV), Hx of Known/Suspected MRSA, Hx Shingles, Hx Tuberculosis, Hx Known/ Suspected VRE, Hx Known/Suspected VRSA, History Other Infectious Disease - Family History Known Family History: Positive: Cardiac Disease, Hypertension - Social History Lives: Alone Alcohol Use: None Substance Use Type: Reports: None Smoking Status (MU): Former Smoker Have You Smoked in the Last Year: No Review of Systems Positive: no symptoms reported Neurological: Other - dizziness and difficulty ambulating Positive: Headache. Negative: Weakness, Numbness All Other Systems Reviewed And Are Negative: Yes Physical Exam - Summary Physical Exam Summary: Appearance: Well appearing, no pain distress Skin: warm, dry, reflects adequate perfusion Head/face: normal Eyes: EOMI, NARESH ENT: normal, moist mucous membranes Neck: supple, non-tender Respiratory: CTA, breath sounds present Cardiovascular: RRR, pulses symmetrical Abdomen: non-tender, soft Bowel Sounds: present Musculoskeletal: normal, strength/ROM intact Neuro: sensory motor intact, A&Ox3, ataxic gait Triage Information Reviewed: Yes Vital Signs On Initial Exam: Initial Vitals BP 175/77 10/15/17 10:37 Vital Signs Reviewed: Yes Diagnostics - Vital Signs Vital Signs Temp Pulse Resp BP Pulse Ox 10/15/17 12:00 60 13 169/80 100 10/15/17 11:54 13 163/76 10/15/17 11:12 97.9 F 58 17 166/66 97 10/15/17 11:10 97 10/15/17 11:00 56 13 166/66 98 10/15/17 10:58 97.9 F 58 17 166/66 97 10/15/17 10:39 60 8 99 10/15/17 10:37 175/77 - Laboratory Lab Results: Lab Results 0410/15/17 10/15/17 Range/Units 10:55 10:55 10:55 WBC 5.7 (3.5-10.8) 10^3/ul RBC 4.34 (4.0-5.4) 10^6/ul Hgb 12.8 (12.0-16.0) g/dl Hct 39 (35-47) % MCV 90 (80-97) fL MCH 30 (27-31) pg MCHC 33 (31-36) g/dl RDW 14 (10.5-15) % Plt Count 180 (150-450) 10^3/ul MPV 6.7 L (7.4-10.4) um3 Neut % (Auto) 67.3 (38-83) % Lymph % (Auto) 21.6 L (25-47) % [place] % (Auto) 9.5 H (0-7) % Eos % (Auto) 1.1 (0-6) % Baso % (Auto) 0.5 (0-2) % Absolute Neuts (auto) 3.8 (1.5-7.7) 10^3/ul Absolute Lymphs (auto) 1.2 (1.0-4.8) 10^3/ul Absolute Monos (auto) 0.5 (0-0.8) 10^3/ul Absolute Eos (auto) 0.1 (0-0.6) 10^3/ul Absolute Basos (auto) 0 (0-0.2) 10^3/ul Absolute Nucleated RBC 0 10^3/ul Nucleated RBC % 0 INR (Anticoag Therapy) 0.87 (0.77-1.02) APTT 32.4 (26.0-36.3) seconds Sodium 139 (139-145) mmol/L Potassium 4.3 (3.5-5.0) mmol/L Chloride 105 (101-111) mmol/L Carbon Dioxide 29 (22-32) mmol/L Anion Gap 5 (2-11) mmol/L BUN 15 (6-24) mg/dL Creatinine 0.94 (0.51-0.95) mg/dL Est GFR ( Amer) 73.7 (>60) Est GFR (Non-Af Amer) 57.3 (>60) BUN/Creatinine Ratio 16.0 (8-20) Glucose 97 (70-100) mg/dL POC Glucose (mg/dL) (70-100) mg/dL Lactic Acid (0.5-2.0) mmol/L Calcium 9.9 (8.6-10.3) mg/dL Magnesium 2.0 (1.9-2.7) mg/dL Total Bilirubin 0.60 (0.2-1.0) mg/dL AST 15 (13-39) U/L ALT 6 L (7-52) U/L Alkaline Phosphatase 101 (34-104) U/L Troponin I 0.00 (<0.04) ng/mL Total Protein 7.0 (6.4-8.9) g/dL Albumin 3.9 (3.2-5.2) g/dL Globulin 3.1 (2-4) g/dL Albumin/Globulin Ratio 1.3 (1-3) Triglycerides 66 mg/dL Cholesterol 165 mg/dL LDL Cholesterol 86 mg/dL HDL Cholesterol 65.6 mg/dL TSH 3.15 (0.34-5.60) mcIU/mL Blood Type Antibody Screen Antibody Identification Direct Antiglob Test 10/15/17 10/15/17 10/15/17 Range/Units 10:55 10:55 11:25 WBC (3.5-10.8) 10^3/ul RBC (4.0-5.4) 10^6/ul Hgb (12.0-16.0) g/dl Hct (35-47) % MCV (80-97) fL MCH (27-31) pg MCHC (31-36) g/dl RDW (10.5-15) % Plt Count (150-450) 10^3/ul MPV (7.4-10.4) um3 Neut % (Auto) (38-83) % Lymph % (Auto) (25-47) % [place] % (Auto) (0-7) % Eos % (Auto) (0-6) % Baso % (Auto) (0-2) % Absolute Neuts (auto) (1.5-7.7) 10^3/ul Absolute Lymphs (auto) (1.0-4.8) 10^3/ul Absolute Monos (auto) (0-0.8) 10^3/ul Absolute Eos (auto) (0-0.6) 10^3/ul Absolute Basos (auto) (0-0.2) 10^3/ul Absolute Nucleated RBC 10^3/ul Nucleated RBC % INR (Anticoag Therapy) (0.77-1.02) APTT (26.0-36.3) seconds Sodium (139-145) mmol/L Potassium (3.5-5.0) mmol/L Chloride (101-111) mmol/L Carbon Dioxide (22-32) mmol/L Anion Gap (2-11) mmol/L BUN (6-24) mg/dL Creatinine (0.51-0.95) mg/dL Est GFR ( Amer) (>60) Est GFR (Non-Af Amer) (>60) BUN/Creatinine Ratio (8-20) Glucose (70-100) mg/dL POC Glucose (mg/dL) 89 (70-100) mg/dL Lactic Acid 1.2 (0.5-2.0) mmol/L Calcium (8.6-10.3) mg/dL Magnesium (1.9-2.7) mg/dL Total Bilirubin (0.2-1.0) mg/dL AST (13-39) U/L ALT (7-52) U/L Alkaline Phosphatase (34-104) U/L Troponin I (<0.04) ng/mL Total Protein (6.4-8.9) g/dL Albumin (3.2-5.2) g/dL Globulin (2-4) g/dL Albumin/Globulin Ratio (1-3) Triglycerides mg/dL Cholesterol mg/dL LDL Cholesterol mg/dL HDL Cholesterol mg/dL TSH (0.34-5.60) mcIU/mL Blood Type A Positive Antibody Screen Positive Antibody Identification Anti-c Direct Antiglob Test Negative Result Diagrams: 10/15/17 10:55 10/15/17 10:55 Lab Statement: Any lab studies that have been ordered have been reviewed, and results considered in the medical decision making process. - Radiology CXR Radiology Interpretation Completed By: Radiologist - Stigmata of obstructive lung disease. No acute pulmonary or cardiac process evident. ED Physician has reviewed this report. - CT Brain CT CT Interpretation Completed By: Radiologist - NO ACUTE INTRACRANIAL PATHOLOGY. FINDINGS CONSISTENT WITH A CHRONIC LEFT INDUSTRIAL MANUFACTURING TECHNICIAN TERRITORY INFARCT. PRELIMINARY FINDINGS WERE DISCUSSED WITH DR. HARO AT APPROXIMATELY 10:48 AM ON OCTOBER 15, 2017. ED Physician has reviewed this report - EKG 1055 Cardiac Rate: Bradycardia - at 55 BPM EKG Rhythm: Sinus Bradycardia ST Segment: Normal EKG Interpretation: nml axis, nml interval NIH Scale - NIH Scale Level of Consciousness: Alert/Keenly Responsive Ask Patient the Month and His/Her Age: [age] Correct/Not Aphasic Ask Pt to Open/Close Eyes and Marketing Project Manager/Release Non-Paretic Hand: Both Correctly Best Gaze (Only Horizontal Eye Movement): Normal Visual Field Testing: No Visual Loss Facial Paresis-Pt to Smile & Close Eyes or Grimace Symmetry: Normal/Symmetrical Motor Function - Right Arm: No Drift-Holds 10 Seconds Motor Function - Left Arm: No Drift-Holds 10 Seconds Motor Function - Right Leg: No Drift-Holds 10 Seconds Motor Function - Left Leg: No Drift-Holds 10 Seconds Limb Ataxia-Must be out of Proportion to Weakness Present: Absent Sensory (Use Pinprick to Test Arms/Legs/Trunk/Face): Normal Best Language (Describe Picture, Name Items): No Aphasia Dysarthria (Read Several Words): Normal Extinction and Inattention: No Abnormality Total Score: 1 Re-Evaluation - Re-Evaluation 1 Comment: Patient informed of results. Pt will be admitted. Course/Dx - Course Course Of Treatment: Pt with hx of TIAs with some confusion, HOU and ataxia. Brought into concern posterior circ stroke so a CODE FROYLAN was called. Her confusion for the month led to an NIHSS of 1 initially, but this improved thus NIHSS 0. She does have a hx of some dementia, on Aricept. She lives alone, so other hx is difficult to obtain. Neuro saw the pt in the ED and had no additional suggestions other than the full dose ASA and fluids I had given her. No evidence for UTI, no significant lab abnormality. Admit for further. - Differential Dx Differential Diagnoses Neuro: Positive: Cerebrovascular Accident, Coronary Artery Disease, Dysrhythmia, Hemorrhage, Hypertension, Labyrinthitis, Metabolic Abnormality, Transient Ischemic Attack, Other - UTI - Diagnoses Provider Diagnoses: Ataxia, Headache During the Visit The Following Alert/Code Occurred: Code [place] - at 10:37 - Critical Care Time Critical Care Time: 30-74 min - CCT is exclusive of separately billable procedures Discharge - Sign-Out/Discharge Documenting (check all that apply): Discharge - Discharge Plan Condition: Fair Disposition: ADMITTED TO [facility] - Billing Disposition and Condition Condition: FAIR Disposition: HOSP-[facility] Consult Consult: At 10:48 radiology reports an old infarct. At 10:50, Dr. Fofana, neurologist, states he will come see pt in ED and agrees with hydration and bolus ASA. At 11:35, Dr. Finney, hospitalist, agrees to admit patient. The documentation as recorded by the Austin briones Julia accurately reflects the service I personally performed and the decisions made by me, Bertin Haro MD.
--- NOTE | 2017-10-15 15:27 | RAD ---
HISTORY: Dizziness COMPARISONS: Head CT dated October 15, 2017, MRI dated March 31, 2017 TECHNIQUE: The following sequences were obtained of the head: Sagittal T1-weighted images, axial T2-weighted images, axial FLAIR images, axial susceptibility weighted images, axial T1-weighted images. Additionally, axial diffusion-weighted images were obtained with calculated apparent diffusion coefficients. FINDINGS: HEMORRHAGE/INFARCT: There is no hemorrhage or acute infarct. MASSES/SHIFT: There is no mass or shift. EXTRA-AXIAL SPACES/MENINGES: There are no extra-axial fluid collections. SULCI AND VENTRICLES: The sulci and ventricles are normal in size and position for the patient's stated age. CEREBRUM: There is multifocal elevated T2/FLAIR signal in the periventricular and subcortical white matter. There is encephalomalacia of the left parietal and occipital lobes consistent with remote HEARING CARE PRACTITIONER territory infarct. There is encephalomalacia of the precentral gyrus consistent with remote infarct. These are stable from the previous examination. BRAINSTEM: There are no focal parenchymal abnormalities. CEREBELLUM: There are multiple chronic lacunar infarcts of the cerebral hemispheres bilaterally. The cerebellar tonsils are normal in size and position. SELLA: The sella is normal. PINEAL: The pineal region is clear. CP ANGLE/TEMPORAL BONES: The labyrinthine structures are grossly normal. VESSELS: Normal flow-voids are noted within the visualized vertebral vasculature. DIFFUSION ABNORMALITIES: There are no diffusion abnormalities. PARANASAL SINUSES/MASTOIDS: The paranasal sinuses are clear. ORBITS: The orbits are unremarkable. BONES AND SOFT TISSUE: No bone or soft tissue abnormalities are noted. OTHER: None IMPRESSION: 1. MULTIFOCAL CHRONIC INFARCTS, THE LARGEST WITHIN THE LEFT HEARING CARE PRACTITIONER TERRITORY. 2. CHRONIC SMALL VESSEL ISCHEMIC CHANGE. 3. NO RESTRICTED DIFFUSION TO SUGGEST ACUTE INFARCT.
--- NOTE | 2017-10-15 15:42 | HP ---
CC: Dr. Ladd; Dr. Fofana * HISTORY AND PHYSICAL: DATE OF ADMISSION: 10/15/17 PRIMARY CARE PROVIDER: Dr. Ladd. ATTENDING PHYSICIAN WHILE IN THE HOSPITAL: Dr. Michell Finney * (report dictated by Dylan Arcos NP). CHIEF COMPLAINT: Dizziness. HISTORY OF PRESENT ILLNESS: Ms. Hernandez is an 82-year-old female patient. She has a history of hypothyroidism, depression, breast cancer, history of TIA and CVA, AFib, and a history of dementia. She comes in to the ED today. She says that she woke up today, her phone was ringing, her friend was on the phone , when she got up, she noticed that she was having dizziness. She just felt lightheaded. She says the room did not feel like it was spinning. She says when she stood up, it did get worse. She says that she did not pass out, did not faint. She said her gait was unsteady, but she says her gait always is unsteady, but she said today it was much worse. She denied any facial drooping. No trouble with the words. No trouble with vision. No weakness to her arm, in one arm or one leg. She denied again any numbness in the face or any facial drooping. She called her daughter, Lauryn, who basically once they got off the phone, Lauryn had called 911 to have the patient evaluated given her history. The patient was brought into the hospital. The patient says that she has not had any recent cough, fevers, chills, nausea, vomiting. She says she has not been sick of late. Says her appetite, normally, she does not eat well. She says that she has been drinking water and she had been taking her medications and she had been feeling well. She came in the ED today. Farrah Ward was called because of the concerns for dizziness and the ataxia. We were asked to evaluate for admission. PAST MEDICAL HISTORY: Significant for: 1. History of TIA. 2. CVA x2. 3. AFib. 4. Dementia. 5. Hypothyroidism. 6. Depression. 7. Breast cancer. PAST SURGICAL HISTORY: The patient has had: 1. Bilateral total knee replacements. 2. Lumpectomy. 3. Left total hip arthroplasty. 3. Cholecystectomy. 4. Hysterectomy. MEDICATIONS: Home medications according the list provided include: 1. Synthroid 100 mEq p.o. 6 days a week. 2. Toprol-XL 25 mg in the morning, 12.5 mg at bedtime. 3. Meclizine 12.5 mg every 8 hours as needed. 4. Lisinopril 5 mg daily. 5. Celexa 40 mg daily. 6. Calcium with vitamin D 1 tablet p.o. daily. 7. Aspirin 81 mg daily. ALLERGIES TO MEDICATIONS: Include CODEINE. FAMILY HISTORY: Mother had a history of cancer and diabetes. Father had a history of COPD. SOCIAL HISTORY: She does not smoke. She lives alone at [facility]. Surrogate decision maker is her daughter. REVIEW OF SYSTEMS: There is no documented fever. Denied having any significant weight change. There was no double vision. There is no ear discharge. Denies having any rhinorrhea. There is no sore throat. No thyroid enlargement. Denies having any chest pain. There is no orthopnea. No nocturnal dyspnea. There is no abdominal pain. There is no nausea, no vomiting. No dysuria, no frequency. There was no seizure, no loss of consciousness. No pruritus and no skin ulcerations. Review of 14 systems completed, all others negative. PHYSICAL EXAMINATION GENERAL: At this time, Ms. Hernandez is an 82-year-old female patient. She is sitting in the ED stretcher. She does not appear to be in any acute distress. She is awake, alert, and oriented. She is confused to the year. She is well developed. VITAL SIGNS: Blood pressure 136/66, pulse 58, respirations 17, O2 sat 97%, temperature 97.4. HEENT: Head is atraumatic, normocephalic. Eyes: EOMs are intact. Sclerae anicteric, not pale. Throat: Oral mucosa appears to be moist. No oropharyngeal erythema. NECK: Supple. LUNGS: Clear to auscultation bilaterally. No wheezes, rales, or rhonchi. HEART: Sounds S1, S2. Regular rate and rhythm. No murmurs, rubs, or gallops. ABDOMEN: Soft, flat, nontender. Bowel sounds present. EXTREMITIES: Pulses were 2+ throughout. She is moving all 4 extremities with 5 /5 strength. NEUROLOGIC: Again, she is awake. She is alert to herself. She is alert to the month, but she is confused to the year. She is oriented to the place. Her speech was clear. Tongue is midline. No facial droop was present. She is moving all 4 extremities with 5/5 strength. There is no limb ataxia. Finger-to -nose is intact bilaterally. [id number] was intact bilaterally. No gross focal deficits. No nystagmus was noted. SKIN: Grossly intact. DIAGNOSTIC STUDIES/LAB DATA: WBC 5.7, RBC of 4.34, hemoglobin 12.8, hematocrit 39, platelet count of 180. INR 0.87, PTT of 32.4. Sodium 139, potassium 4.3, chloride of 105, bicarb of 29, BUN 15, creatinine of 0.94, glucose 97, lactate 1.2, calcium 9.9. Total bili 0.6, AST 15, ALT 6, alk phos 101. Troponin 0. Albumin 3.9. Urine is pending. She had a brain CT obtained today, which revealed no acute intracranial pathology. Findings consistent with a chronic left FILLER SHAKER territory infarct. She had a chest x-ray obtained today, which showed stigmata of obstructive lung disease. No acute pulmonary or cardiac process evident. She had an EKG obtained today, which does show sinus bradycardia, rate of 55. No ST elevations or T-wave inversions were noted. It was reviewed to the previous EKGs, there does not appear to be any acute changes. Old medical records were reviewed. ASSESSMENT AND PLAN: Ms. Hernandez is an 82-year-old female patient coming into the ED today with complaints of dizziness. Code Ed was called. We were asked to evaluate for admission. She will be admitted under observation status for: 1. Dizziness. I am concerned that this could be certainly related to recurrent stroke. Dr. Fofana has been consulted and has evaluated the patient. We will go ahead and get an MRI of the brain. If this is positive for a new ischemia, we would then workup with CTA head and neck, and probably an echo with bubble study. We will place her on telemetry. I will go ahead and place her on aspirin, I do note that she had had a history of atrial fibrillation and stroke in the past, and she is not on a blood thinner. At this point, I did discuss this risk with the patient for cerebrovascular accident. She will discuss with her primary going forward possibly a blood thinner addition; however, with a history of dizziness and ataxia, it may be risk to put her on blood thinner due to the risk of falls and she is in a sinus rhythm now. We will also check orthostatic blood pressures, place her on telemetry to monitor for any arrhythmias, checking her TSH, her mag, and we will continue to follow. 2. Hypothyroidism. Check her TSH, continue her Synthroid. 3. Depression. Continue with supportive care. 4. Breast cancer. Follow with primary, not an active issue. 5. History of transient ischemic attack and cerebrovascular accident. Continue with secondary prevention. 6. History of atrial fibrillation. Again, continue with rate control with her metoprolol. She is on aspirin. 7. Dementia. Continue with supportive care. 8. Code status. She wished to be DNR. There is a MOLST form we completed. 9. DVT prophylaxis. She will be placed on heparin subcu. 10. Fluids, electrolytes, and nutrition. She can have a heart healthy diet. TIME SPENT: On the admission was 60 minutes, greater than half time was spent face- to-face with the patient obtaining my history and physical, other half the time was spent going over the plan of care with the patient and implementing the plan of care. I did discuss the case with my attending, Dr. Finney; she is in agreement. DYLAN ARCOS, BRIAN [id number]/[facility] #: [id number] YANI
--- NOTE | 2017-10-15 16:15 | CONS ---
CC: Dr. Ciro Hamm. NEUROLOGY CONSULTATION REPORT: DATE OF CONSULT: 10/15/17 REQUESTING CLINICIAN: Dylan Arcos NP/ Dr. Michell Finney REASON FOR CONSULT: Dizziness, evaluation after code holden for stroke was called. HISTORY OF PRESENT ILLNESS: The patient is an 82-year-old female with history of left ACCOUNTANT SYSTEMS stroke who presented with symptoms of dizziness today. The patient went to bed last night and that was her last time that she felt was normal. She does not recall exactly what time she went to bed, but she usually watches TV until around midnight and then goes to bed. She woke up this morning, again she does not recall the exact time she woke up, but usually she wakes up around 8 a.m. She woke up this morning with feeling dizzy. She does not provide a great history, but does not report a consistent or clear relation of her dizziness to change of position; however, report sometimes exacerbation of her symptoms with some movements. She feels a bit nauseated. There are no other neurological symptoms such as no diplopia, no dysarthria, no dysphagia, or aphasia. She does not report any numbness in the arms and legs or any weakness. At her baseline she does of some difficulty walking and she thought today it was worse. Seems there is a history of mild cognitive impairment/memory in this patient. PAST MEDICAL HISTORY: Significant for: 1. Depression. 2. History of breast cancer. 3. History of stroke in the left ACCOUNTANT SYSTEMS territory 4. History of TIAs in the past 5. History of AFib. PAST SURGICAL HISTORY: 1. History of bilateral knee replacements. 2. Left total hip arthroplasty. 3. Cholecystectomy. 4. Hysterectomy. 5. ORIF of the left elbow. 6. Lumpectomy. HOME MEDICATIONS: 1. Metoprolol XL 25 mg every morning and 12.5 mg at bedtime. 2. Lisinopril 5 mg p.o. daily. 3. Levothyroxine 100 mcg p.o. 6 days a week. 4. Citalopram 40 mg p.o. daily. 5. Vitamin D3 one tablet daily. 6. Aspirin 81 mg p.o. daily. ALLERGIES: She is allergic to CODEINE. FAMILY HISTORY: There is a family history of diabetes and cancer in the patient 's mother. Also father had a history of COPD. SOCIAL HISTORY: The patient does not have any history of smoking or alcohol. REVIEW OF SYSTEMS: Complete review of systems was performed and other than what was mentioned above is negative. PHYSICAL EXAM: Blood pressure is 166/66, temperature 97.9, respiratory rate 17 , and pulse rate 58. General appearance: Alert, cooperative, no distress, appears stated age. Eyes: Conjunctiva not pale, sclera not icteric. Heart has regular rate and rhythm. Lungs clear to auscultation. On neurological exam, the patient is awake, alert, and oriented to month but not to the year date or day of the week (she does have some baseline problem with memory). Pupils are symmetric and reactive to light. Visual khan are intact by confrontation. Face is symmetric. Tongue is in midline. Palate elevates upwards. V1 to V3 intact to light touch and pinprick. On motor exam, there is no pronator drift. Strength is 5/5 throughout. Sensation is intact to light touch and pinprick. [id number]-[id number] is intact bilaterally. Svyy-ug-yxir is normal bilaterally other than some restriction in the left leg due to history of problem in the left hip. Gait was not tested. The NIH Stroke Scale is 0 at this time. DIAGNOSTIC STUDIES/LAB DATA: A CT brain without contrast today showed no acute intracranial abnormality, but chronic left ACCOUNTANT SYSTEMS territory infarct. An MRI of the brain, the last one done on 03/31/17, reports stable chronic infarct and chronic small vessel ischemic changes (area of consolidation of the left parietooccipital region as well as cortical encephalization of the postcentral gyrus on the right. Also, lacunar infarct in the inferior cerebral hemispheres bilaterally). Labs: WBC 5.7, hemoglobin 12.8, hematocrit 39, platelet 180. Sodium 139, potassium 4.3, creatinine 0.94. ALT 6, AST 15, INR 0.87. ASSESSMENT AND PLAN: The patient is an 82-year-old female with history of prior left posterior cerebral artery territory stroke and lacunar infarct, presented with symptom of dizziness today with no other associated symptoms. On neurological exam at this point NIHSS is 0 and there are no findings that are suggestive of a new stroke; however, given her prior posterior circulation infarct, it will be reasonable to confirm that with an MRI of the brain. Continue aspirin. The patient does not qualify for an antithrombotic therapy since she is out of the time window as well as her NIH Stroke Scale is 0. Posterior stroke usually is not well assessed by NIH Stroke Scale, nevertheless , as mentioned above, the suspicion for a new stroke is low. [id number]/[facility] #: [id number] YANI
[2017-10-15] MEDS ORDERED: Metoprolol Succinate XL TAB* 25 MG PO SCH (21:00)
[2017-10-16] MEDS: Heparin VIAL(*) 5000 UNITS/ML VIAL (FIVE THOUSAND) SUBCUT SCH (05:00)
[2017-10-16 05:32] LABS: ABS Basophils 0 10^3/ul (0-0.2); ABS Eosinophils 0.1 10^3/ul (0-0.6); ABS Lymphocytes 1.4 10^3/ul (1.0-4.8); ABS Monocytes 0.6 10^3/ul (0-0.8); ABS Nucleated RBC 0 10^3/ul; Eosinophil % 1.6 % (0-6); Hematocrit 36 % (35-47); Hemoglobin 12.2 g/dl (12.0-16.0); Lymphocyte % 27.8 % (25-47); Mean Corpuscular HGB Conc 34 g/dl (31-36); Mean Corpuscular Hemoglobin 30 pg (27-31); Mean Corpuscular Volume 90 fL (80-97); Mean Platelet Volume 7.1 um3 (7.4-10.4); Nucleated Red Blood Cells % 0.1; Platelet Count 161 10^3/ul (150-450); Red Blood Count 4.06 10^6/ul (4.0-5.4); Red Cell Distribution Width 14 % (10.5-15); White Blood Count 5.1 10^3/ul (3.5-10.8)
[2017-10-16 05:42] LABS: EGFR Non-African American 59.5 (>60)
[2017-10-16] MEDS ORDERED: Levothyroxine TAB* 100 MCG TAB PO SCH (06:00)
[2017-10-16] MEDS: Metoprolol Succinate XL TAB* 25 MG PO SCH (08:10)
[2017-10-16] MEDS ORDERED: Aspirin EC TAB* 81 MG TAB.EC PO SCH (09:00)
[2017-10-16] MEDS ORDERED: Citalopram TAB* 40 MG PO SCH (09:00)
[2017-10-16] MEDS ORDERED: Lisinopril TAB* 5 MG PO SCH (09:00)
--- NOTE | 2017-10-16 10:13 | PN ---
Subjective Date of Service: 10/16/17 Interval History: Patient was seen and examined at bedside. Reports doing well, denies any c/o. Has been getting out of her bed, using the bathroom, denies any recurrent dizziness. She admits not drinking enough fluids at home. Denies headaches, vertigo, tinnitus, chest pain or SOB. She would like to go home today. She was evaluated by Dr. Fofana with NIHSS score of 0. Family History: Unchanged from Admission Social History: Unchanged from Admission Past Medical History: Unchanged from Admission Objective Active Medications: Acetaminophen (Tylenol Tab*) 650 mg PO Q4H PRN PRN Reason: FEVER/PAIN Aspirin (Aspirin Ec Tab*) 81 mg PO DAILY [facility] Last Admin: 10/16/17 08:10 Dose: 81 mg Citalopram Hydrobromide (Celexa Tab*) 40 mg PO DAILY [facility] Last Admin: 10/16/17 08:10 Dose: 40 mg Heparin Sodium (Porcine) (Heparin Vial(*)) 5,000 units SUBCUT Q8HR [facility] Last Admin: 10/16/17 05:00 Dose: 5,000 units Levothyroxine Sodium (Synthroid Tab*) 100 mcg PO [id number] [facility] Last Admin: 10/16/17 05:00 Dose: 100 mcg Lisinopril (Prinivil Tab*) 5 mg PO DAILY [facility] Last Admin: 10/16/17 08:11 Dose: 5 mg Meclizine HCl (Antivert Tab*) 12.5 mg PO Q8HR PRN PRN Reason: DIZZINESS Metoprolol Succinate (Toprol Xl Tab*) 25 mg PO QAM [facility] Last Admin: 10/16/17 08:10 Dose: 25 mg Metoprolol Succinate (Toprol Xl Tab*) 12.5 mg PO BEDTIME [facility] Last Admin: 10/15/17 20:40 Dose: 12.5 mg Ondansetron HCl (Zofran Inj*) 4 mg IV Q6H PRN PRN Reason: NAUSEA Vital Signs - 8 hr 10/16/17 10/16/17 10/16/17 03:55 07:30 08:00 Temperature 98.4 F 98.3 F Pulse Rate 66 56 Respiratory 16 20 Rate Blood Pressure 138/69 137/61 (mmHg) O2 Sat by Pulse 97 98 98 Oximetry Orthostatic BP reviewed, within normal limits Oxygen Devices in Use Now: None Appearance: Awake, alert, and oriented. Sitting on her bed, appears comfortable and in NAD. Eyes: No Scleral Icterus, PERRLA Ears/Nose/Mouth/Throat: Mucous Membranes Moist Neck: NL Appearance and Movements; NL JVP, Trachea Midline Respiratory: Symmetrical Chest Expansion and Respiratory Effort, Clear to Auscultation Cardiovascular: NL Sounds; No Murmurs; No JVD, RRR Abdominal: NL Sounds; No Tenderness; No Distention Extremities: No Edema Neurological: Alert and Oriented x 3, NL Sensation, NL Muscle Strength and Tone Nutrition: Taking PO's Result Diagrams: 10/16/17 04:58 10/16/17 04:58 Additional Lab and Data: Lab Results 10/15/17 10/15/17 10/15/17 Range/Units 10:55 10:55 10:55 WBC 5.7 (3.5-10.8) 10^3/ul RBC 4.34 (4.0-5.4) 10^6/ul Hgb 12.8 (12.0-16.0) g/dl Hct 39 (35-47) % MCV 90 (80-97) fL MCH 30 (27-31) pg MCHC 33 (31-36) g/dl RDW 14 (10.5-15) % Plt Count 180 (150-450) 10^3/ul MPV 6.7 L (7.4-10.4) um3 Neut % (Auto) 67.3 (38-83) % Lymph % (Auto) 21.6 L (25-47) % [place] % (Auto) 9.5 H (0-7) % Eos % (Auto) 1.1 (0-6) % Baso % (Auto) 0.5 (0-2) % Absolute Neuts (auto) 3.8 (1.5-7.7) 10^3/ul Absolute Lymphs (auto) 1.2 (1.0-4.8) 10^3/ul Absolute Monos (auto) 0.5 (0-0.8) 10^3/ul Absolute Eos (auto) 0.1 (0-0.6) 10^3/ul Absolute Basos (auto) 0 (0-0.2) 10^3/ul Absolute Nucleated RBC 0 10^3/ul Nucleated RBC % 0 INR (Anticoag Therapy) 0.87 (0.77-1.02) APTT 32.4 (26.0-36.3) seconds Sodium 139 (139-145) mmol/L Potassium 4.3 (3.5-5.0) mmol/L Chloride 105 (101-111) mmol/L Carbon Dioxide 29 (22-32) mmol/L Anion Gap 5 (2-11) mmol/L BUN 15 (6-24) mg/dL Creatinine 0.94 (0.51-0.95) mg/dL Est GFR ( Amer) 73.7 (>60) Est GFR (Non-Af Amer) 57.3 (>60) BUN/Creatinine Ratio 16.0 (8-20) Glucose 97 (70-100) mg/dL POC Glucose (mg/dL) (70-100) mg/dL Lactic Acid (0.5-2.0) mmol/L Calcium 9.9 (8.6-10.3) mg/dL Magnesium 2.0 (1.9-2.7) mg/dL Total Bilirubin 0.60 (0.2-1.0) mg/dL AST 15 (13-39) U/L ALT 6 L (7-52) U/L Alkaline Phosphatase 101 (34-104) U/L Troponin I 0.00 (<0.04) ng/mL Total Protein 7.0 (6.4-8.9) g/dL Albumin 3.9 (3.2-5.2) g/dL Globulin 3.1 (2-4) g/dL Albumin/Globulin Ratio 1.3 (1-3) Triglycerides 66 mg/dL Cholesterol 165 mg/dL LDL Cholesterol 86 mg/dL HDL Cholesterol 65.6 mg/dL TSH 3.15 (0.34-5.60) mcIU/mL Blood Type Antibody Screen Antibody Identification Direct Antiglob Test 10/15/17 10/15/17 10/15/17 Range/Units 10:55 10:55 11:25 WBC (3.5-10.8) 10^3/ul RBC (4.0-5.4) 10^6/ul Hgb (12.0-16.0) g/dl Hct (35-47) % MCV (80-97) fL MCH (27-31) pg MCHC (31-36) g/dl RDW (10.5-15) % Plt Count (150-450) 10^3/ul MPV (7.4-10.4) um3 Neut % (Auto) (38-83) % Lymph % (Auto) (25-47) % [place] % (Auto) (0-7) % Eos % (Auto) (0-6) % Baso % (Auto) (0-2) % Absolute Neuts (auto) (1.5-7.7) 10^3/ul Absolute Lymphs (auto) (1.0-4.8) 10^3/ul Absolute Monos (auto) (0-0.8) 10^3/ul Absolute Eos (auto) (0-0.6) 10^3/ul Absolute Basos (auto) (0-0.2) 10^3/ul Absolute Nucleated RBC 10^3/ul Nucleated RBC % INR (Anticoag Therapy) (0.77-1.02) APTT (26.0-36.3) seconds Sodium (139-145) mmol/L Potassium (3.5-5.0) mmol/L Chloride (101-111) mmol/L Carbon Dioxide (22-32) mmol/L Anion Gap (2-11) mmol/L BUN (6-24) mg/dL Creatinine (0.51-0.95) mg/dL Est GFR ( Amer) (>60) Est GFR (Non-Af Amer) (>60) BUN/Creatinine Ratio (8-20) Glucose (70-100) mg/dL POC Glucose (mg/dL) 89 (70-100) mg/dL Lactic Acid 1.2 (0.5-2.0) mmol/L Calcium (8.6-10.3) mg/dL Magnesium (1.9-2.7) mg/dL Total Bilirubin (0.2-1.0) mg/dL AST (13-39) U/L ALT (7-52) U/L Alkaline Phosphatase (34-104) U/L Troponin I (<0.04) ng/mL Total Protein (6.4-8.9) g/dL Albumin (3.2-5.2) g/dL Globulin (2-4) g/dL Albumin/Globulin Ratio (1-3) Triglycerides mg/dL Cholesterol mg/dL LDL Cholesterol mg/dL HDL Cholesterol mg/dL TSH (0.34-5.60) mcIU/mL Blood Type A Positive Antibody Screen Positive Antibody Identification Anti-c Direct Antiglob Test Negative Diagnostic Imaging: Patient Name: RASHEED VASQUEZ Medical Record#: [id number] Ordering Physician: Dylan Arcos SHEET FOLDER Acct.#: [id number] : 1935 Age: 82 Sex: F Location: [address] [place] [address] MEDICAL/TELEMETRY Exam Date: 10/15/17 1222 ADM Status: ADM Diya Order Information: MRI BRAIN W/O Accession Number: [id number] CPT: 39037 HISTORY: Dizziness COMPARISONS: Head CT dated October 15, 2017, MRI dated March 31, 2017 IMPRESSION: 1. MULTIFOCAL CHRONIC INFARCTS, THE LARGEST WITHIN THE LEFT BAG BLEACHER TERRITORY. 2. CHRONIC SMALL VESSEL ISCHEMIC CHANGE. 3. NO RESTRICTED DIFFUSION TO SUGGEST ACUTE INFARCT. CPT: 23264 Indication: Code holden. Neurological changes. Comparison: November 10, 2016 Technique: Upright AP 1050 hours Report: Elevated lung volumes and both diffuse mild prominence of the interstitial markings and patchy rarefaction of the mid to upper lung zone interstitial markings. Costochondral calcifications noted. Chronic LEFT apical pleural-parenchymal scarring. No suspicious focal pulmonary lesion, compelling alveolar consolidation, pleural effusion, pneumothorax. Cardiac loop recorder noted. Upper normal heart size. Unremarkable central pulmonary vasculature. Mildly tortuous descending thoracic aorta. IMPRESSION: Stigmata of obstructive lung disease. No acute pulmonary or cardiac process evident. EKG Data: EKG INTERPRETATION ECG Report Patient Name RASHEED VASQUEZ Birthdate 1935 Sex F Order Number [id number] Date of ECG 10/15/2017 10:55:05 Interpretation Sinus bradycardia.rate< 60 Low voltage, extremity leads.all extremity leads <0.5mV - OTHERWISE NORMAL ECG - ECG NEEDS E-SIGNING Assess/Plan/Problems-Billing Assessment: An 82 y/o female with an episode of dizziness yesterday and concern for recurrent CVA, admitted for observation with no evidence of recurrent dizziness or CVA event, negative MRI and NIHSS of 0, likely secondary to dehydration or viral illness. - Patient Problems (1) Dizziness, nonspecific Current Visit: Yes Status: Acute Comment: Likely related to dehydration. Patient informs me she doesn't drink enough fluids at home. Orthostatic BP reviewed, within normal limits Symptoms resolved with hydration and encourage PO intake (2) Dehydration Current Visit: Yes Comment: Encouraged increased PO fluid intake at home (3) Hypothyroidism Current Visit: Yes Comment: Continue Levothyroxin (4) Atrial fibrillation Current Visit: Yes Comment: Controlled with Metoprolol (5) Depression Current Visit: Yes Status: Acute Code(s): F32.9 - MAJOR DEPRESSIVE DISORDER , SINGLE EPISODE, UNSPECIFIED SNOMED Code(s): 77346733 Comment: Supportive care (6) DVT prophylaxis Current Visit: Yes Status: Acute Code(s): SZG4590 - SNOMED Code(s): 928727612 Comment: On subQ heparin (7) DNR (do not resuscitate) Current Visit: Yes Status: Acute Status and Disposition: Mrs. Vasquez has improved overnight. She is ambulatory with no dizziness noted. Plan for discharge to home today. Advised to increase fluid intake at home. Plan to F/U with Dr. Ladd next week. Dr. Fofana agreed to plans. Total time spent for her discharge was 35 min.
[2017-10-16 11:35] VITALS: BP 130/62
--- NOTE | 2017-10-16 22:40 | DS ---
AMENDED REPORT NOW INCLUDES COSIGNER DESIGNATION - ESIGNED BEFORE ADJUSTMENTS CC: Dr. Fofana; Dr. Ladd * DISCHARGE SUMMARY: DATE OF ADMISSION: 10/15/17 DATE OF DISCHARGE: 10/16/17 PATIENT OF: Arin Mejia MD ADMITTING PHYSICIAN: Michell Finney DO ATTENDING PHYSICIAN: Arin Mejia MD * (DICTATED BY PARAG KAMARA) ADMISSION DIAGNOSES: 1. Dizziness without syncope. 2. Dementia. 3. History of transient ischemic attack and cerebrovascular accident x2. 4. History of atrial fibrillation. 5. Hypothyroidism. 6. Depression. 7. History of breast cancer. DISCHARGE DIAGNOSES: 1. Dizziness without syncope. 2. Dementia. 3. History of TIA and cerebrovascular accident x2. 4. History of atrial fibrillation. 5. Hypothyroidism. 6. Depression. 7. History of breast cancer. CONSULTATION: Ge Fofana MD from Neurology. PROCEDURE: None. BRIEF MEDICAL HISTORY: Mrs. Hernandez is a pleasant 82-year-old female with past medical history significant for atrial fibrillation, hypothyroidism, depression, breast cancer, history of TIA and CVA as well as dementia. She came to the emergency room yesterday after she noticed some episode of dizziness. She woke up yesterday morning when her phone rang and she got up from her bed and felt lightheaded. She did not feel like the room was spinning around and she denies any syncope, headache, or blurred vision. She denies any similar complaints in the past. She also said that her gait was slightly unsteady because of her dizziness and given her history of CVA, she was brought to the emergency room for further evaluation. She denies any slurred speech, facial drooping, or trouble with wording. She denies any arms or leg weakness. The patient was evaluated in the emergency room and had laboratory workup that was essentially within normal limits. She had a CT scan of the head that revealed no evidence of bleeding followed by brain MRI that showed some evidence of old infarct, however, there was no evidence of any acute ischemic process. Given her recent episode of dizziness and her history of CVA, the patient was admitted under observation status by the hospitalist team. HOSPITAL COURSE: The patient was admitted on 10/16/17. She was evaluated and a consultation by Dr. Fofana from neurology department was obtained. The patient was found on examination to have no specific neurological deficit and she scored 0 on her NIHSS scale. She was evaluated again on the next morning and found to be in a stable condition. She was ambulatory out of bed and she denied any recurrent episodes of dizziness. Her orthostatic blood pressure was obtained and revealed values of 135/61 lying down, 135/72 sitting and 122/71 standing. Her pulse was 66, 63, and 70 in that sequence as well. The patient was examined again on the following morning and there was no evidence of any neurological deficit. She informed me that she has been having some viral illness for the past couple of days, mostly upper respiratory congestion and she has not been drinking enough fluids at home as well. This morning, again, she was ambulatory and had her breakfast and would like to be discharged home. She was seen again this morning by the neurologist and she was cleared to be discharged home in a stable condition. We will plan for her to go back home and resume all her medications as usual. She will follow up with Dr. Ladd next week and advised to return to the emergency room if she experienced any more episodes of dizziness or other alarming symptoms. DISCHARGE MEDICATIONS: Include: 1. Aspirin 81 mg p.o. daily. 2. Calcium 1 tablet chewable once daily. 3. Celexa 40 mg p.o. daily. 4. Synthroid 100 mcg p.o. daily. 5. Lisinopril 5 mg p.o. daily. 6. Meclizine 12.5 mg p.o. q.8 hours as needed for dizziness. 7. Metoprolol XL 25 mg p.o. daily. PROBLEM LIST: 1. Dizziness without syncope, likely related to dehydration, recovered with gentle hydration and increased p.o. intake. 2. Hypertension. 3. Atrial fibrillation. 4. Hypothyroidism. 5. Depression. PARAG KAMARA [id number]/[facility] #: [id number] YANI
== END 2017-10-16 12:13 | disposition home or self-care (01) ==
LOC: ED 10:27 → MEDTELE 12:20
PROVIDERS: ADMIT Hospitalist; ATTEND Internal Medicine
DX: R42 Dizziness and giddiness (principal); F03.90 Unspecified dementia, unspecified severity, without behavioral disturbance, psychotic disturbance, mood disturbance, and anxiety; Z86.73 Personal history of transient ischemic attack (TIA), and cerebral infarction without residual deficits; I48.91 Unspecified atrial fibrillation; E03.9 Hypothyroidism, unspecified; E86.0 Dehydration; F32.9 Major depressive disorder, single episode, unspecified; Z85.3 Personal history of malignant neoplasm of breast; Z90.10 Acquired absence of unspecified breast and nipple; Z96.653 Presence of artificial knee joint, bilateral; Z96.642 Presence of left artificial hip joint; Z90.49 Acquired absence of other specified parts of digestive tract; Z90.710 Acquired absence of both cervix and uterus; R51 Headache; R27.0 Ataxia, unspecified; R26.81 Unsteadiness on feet; Z79.01 Long term (current) use of anticoagulants; Z79.82 Long term (current) use of aspirin; Z87.891 Personal history of nicotine dependence; I67.9 Cerebrovascular disease, unspecified; I63.9 Cerebral infarction, unspecified
CPT/HCPCS: 36415; 70450; 70551; 71045; 80048; 80053; 80061; 81003; 81015; 83036; 83605; 83735; 84443; 84484; 85025; 85610; 85730; 86850; 86870; 86880; 86900; 86901; 87086; 93005; 99284; A9270-GY; G0378; J1644

== ENCOUNTER 2017-12-10 13:01 | Observation (INO) | payer MEDICARE ==
--- OUTSIDE RECORDS SUMMARY | 2017-12-10 13:53 | XMS REPORT ---
:1935 External Reference #:[id number] Author Organization [facility] Address [address] [place] [address] Phone [phone] Care Team Providers Name Role Phone Junior Kimbrough MD Care Team Information Nutrition Faculty Member Unavailable Junior Kimbrough MD Primary Care Physician Unavailable Payers Type Date Identification Numbers Payment Provider Subscriber Medicare Primary Effective: Policy Number: Medicare Kwasi Vasquez 2002 [id number] PayID: [id number] 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 Smoking Patient has never smoked Allergies, Adverse Reactions, Alerts Date Description Reaction Status Severity Comments 11/11/2017 Codeine active Medications Medication Date Status Form Strength Qnty SIG Indications Ordering Provider Metoprolol Active Tablets 25mg 45tabs /2 by Junior Pérez Succinate ER 018 ER 24HR mouth Kaylan nye MD in in the morning Lisinopril 0 Active Tablets 5mg 1 by Unknown 000 mouth every day Citalopram 0 Active Tablets 40mg 1 by Unknown Hydrobromide 000 mouth every day Levothyroxine 0 Active Tablets 150mcg 1 by Unknown Sodium 000 mouth every day Calcium 00/00/0 Active Tablets 1po every Unknown 000 day Aspirin Adult Active Tablets 81mg 1 by Unknown Low Dose 000 DR mouth every day Metoprolol Hx Tablets 25mg take one Unknown Tartrate 000 - tablet by mouth 018 twice a day Vital Signs Date Vital Result Comment 11/11/2017 BP Systolic 100 mmHg BP Diastolic 58 mmHg Heart Rate 70 /min Body Temperature 98.0 F Respiratory Rate 16 /min Height 63 inches 5'3" Weight 152.00 lb BMI (Body Mass Index) 26.9 kg/m2 Right Visual Acuity Distance 20/50 Left Visual Acuity Distance 20/50 Results Description No Information Procedures Date CPT Code Description Status 07/12/2017 Mammogram Completed 07/12/2010 Colonoscopy Completed Plan of Care 11/11/2017 - Junior Kimbrough [id number] Essential (primary) hypertensionFollow up:2 moF01.50 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 Yes No Are there Barriers to Adherence? Yes No Has the patient been asked about herbal supplements and therapies, and OTC meds? Yes No
[2017-12-10 15:37] LABS: ABS Basophils 0 10^3/ul (0-0.2); ABS Eosinophils 0.1 10^3/ul (0-0.6); ABS Lymphocytes 1.3 10^3/ul (1.0-4.8); ABS Monocytes 0.5 10^3/ul (0-0.8); ABS Neutrophils 3.3 10^3/ul (1.5-7.7); ABS Nucleated RBC 0 10^3/ul; Eosinophil % 1.1 % (0-6); Hematocrit 38 % (35-47); Hemoglobin 12.6 g/dl (12.0-16.0); Lymphocyte % 24.6 % (25-47); Mean Corpuscular HGB Conc 33 g/dl (31-36); Mean Corpuscular Hemoglobin 30 pg (27-31); Mean Corpuscular Volume 89 fL (80-97); Mean Platelet Volume 6.9 um3 (7.4-10.4); Nucleated Red Blood Cells % 0.1; Platelet Count 163 10^3/ul (150-450); Red Blood Count 4.26 10^6/ul (4.0-5.4); Red Cell Distribution Width 14 % (10.5-15); White Blood Count 5.2 10^3/ul (3.5-10.8)
[2017-12-10 15:58] LABS: EGFR Non-African American 58.7 (>60)
[2017-12-10 16:18] LABS: Urine Appearance Clear; Urine Blood 1+ (Negative); Urine Color Yellow; Urine Ketones Negative (Negative); Urine Protein Negative (Negative); Urine Specific Gravity 1.011 (1.010-1.030); Urine Urobilinogen Negative (Negative)
[2017-12-10] MEDS ORDERED: cefTRIAXone(*) 1 GM in NS 0.9% 50 ML* 50 ML IVPB ONE (16:25)
--- NOTE | 2017-12-10 17:05 | RAD ---
INDICATION: Weakness. COMPARISON: Comparison is made with a prior CT of the chest from January 07, 2015, chest x-ray studies from September 20, 2014 and October 15, 2017. TECHNIQUE: AP and lateral views of the chest were obtained. FINDINGS: The heart appears mildly enlarged and unchanged from the prior studies. There is a moderate size hiatal hernia present with an air-fluid level. The lungs are clear. No pleural effusion is present. IMPRESSION: 1. MILD CARDIOMEGALY, UNCHANGED. 2. MODERATE SIZE HIATAL HERNIA.
[2017-12-10] MEDS ORDERED: Acetaminophen TAB* 325 MG PO PRN (19:58)
[2017-12-10] MEDS ORDERED: Levothyroxine TAB* 150 MCG TAB PO SCH (21:00)
[2017-12-10] MEDS ORDERED: Metoprolol Succinate XL TAB* 25 MG PO SCH (21:00)
[2017-12-10] MEDS: Heparin VIAL(*) 5000 UNITS/ML VIAL (FIVE THOUSAND) SUBCUT SCH (23:31)
--- NOTE | 2017-12-11 04:49 | HP ---
CC: HISTORY AND PHYSICAL: DATE OF ADMISSION: 12/10/17 PROVIDER: Olamide Sheffield NP PRIMARY CARE PROVIDER: ATTENDING PHYSICIAN WHILE IN THE HOSPITAL: Dr. Donato Escobar * (dictated by Olamide Sheffield NP). CHIEF COMPLAINT: Dizziness. HISTORY OF PRESENT ILLNESS: Ms. Hernandez is an 82-year-old female who carries a past medical history significant for hypertension, hypothyroid, dementia, frequent UTIs, breast cancer, depression, TIAs, and CVA, and cardiomyopathy. PAST SURGICAL HISTORY: 1. Bilateral total knee replacements. 2. Left hip replacement. 3. Cholecystectomy. 4. Hysterectomy. 5. Left breast lumpectomy. HOME MEDICATIONS: 1. Calcium with vitamin D 1 tablet. 2. Aspirin 81 mg p.o. daily. 3. Levothyroxine 100 mcg p.o. daily. 4. Citalopram 40 mg p.o. daily. 5. Metoprolol succinate 12.5 mg p.o. daily. 6. Lisinopril 5 mg p.o. daily. ALLERGIES: She has an allergy to CODEINE and ANESTHETICS. FAMILY HISTORY: Mother with a history of diabetes and uterine cancer. Father with a history of COPD. SOCIAL HISTORY: She does not smoke. She does not use any alcohol. She denies any illicit drug use. She currently lives at the [facility]. Surrogate decision maker is her daughter. Her phone number is [phone]. She is a DNR/DNI. REVIEW OF SYSTEMS: There is no documented fever. There has been no significant weight change. She denies any double vision. Denies any rhinorrhea. Denies any sore throat. Denies any chest pain or orthopnea. Denies any dyspnea. There was no abdominal pain. She denies any nausea, vomiting or diarrhea. Denies any dysuria or urinary frequency. She denies any seizures or loss of consciousness. Denies any pruritus or skin ulcerations. Review of 14 systems was completed and all others are negative. PHYSICAL EXAMINATION GENERAL: At this time, Ms. Hernandez is an 82-year-old female patient. She is sitting on the stretcher in the emergency room. She does not appear to be in any acute distress. She is alert and oriented, but confused to year. VITAL SIGNS: Blood pressure 137/77, heart rate was 77, respirations were 21, temperature was 98.9, O2 saturation on room air was 97%. HEENT: Head is atraumatic, normocephalic. Eyes: EOMs are intact. Sclerae anicteric and not pale. Oral mucosa appears to be dry. There was no oropharyngeal erythema. NECK: Supple. LUNGS: Clear to auscultation bilaterally. No wheezes, rales or rhonchi. HEART: S1, S2. Has regular rate. She does have frequent PVCs on the monitor. No murmurs, rubs or gallops. ABDOMEN: Soft and nontender. Bowel sounds are present x4. EXTREMITIES: Pulses are +2 throughout. She is able to move all 4 extremities with 5/5 strength. NEUROLOGIC: Again, she is awake. She is oriented x3. Her speech is clear. Tongue is midline. There is no facial droop. She is moving all 4 extremities with 5/5 strength. There is no limb ataxias. Pybiwr-ls-dywz is intact. Heel- to-atwood is intact bilaterally. There is no gross focal deficit. Cranial nerves II through XII are intact. There is no nystagmus noted. SKIN: Grossly intact. DIAGNOSTIC STUDIES/LAB DATA: WBCs are 5.2, RBCs 4.26, hemoglobin 12.6, hematocrit was 38, platelets are 163. Sodium 137, potassium 4.4, chloride was 103, carbon dioxide was 27, anion gap was 7, BUN was 13, creatinine 0.92. Lactic acid was 0.9. Magnesium was 2.2. TSH was 0.29, free T4 was 0.88. Urine is clear and yellow, pH was 7, specific gravity was 1.011. Urine protein, ketones were negative. Urine blood was 1+. Urine nitrites were negative. Bilirubin was negative. Urobilinogen was negative. Urine leukocyte esterase was 3+. Urine wbc's were 2+, rbc's were 1+. Urine squamous epithelial cells were present. Bacteria was absent. Glucose was negative. Chest x-ray, radiologist's impression: 1. Mild cardiomegaly, unchanged. 2. Moderate size hiatal hernia. She had electrocardiogram which showed sinus estefani at a rate of 57. ASSESSMENT AND PLAN: Ms. Hernandez is an 82-year-old female that presented to the emergency room today with a transient complaint of dizziness and tingling that lasted 6 to 7 minutes while sitting in her chair approximately noon today. She will be admitted under observation status for: 1. Urinary tract infection. Her culture is pending at the time. We will continue her on ceftriaxone 1 g IV q.24 hours. 2. Transient dizziness and tingling. This has resolved. She has no focal neuro deficits. Cranial nerves II through XII are intact. Family does report that she has episodes of weakness and dizziness that are accompanying her frequent urinary tract infections. I suspect this is probably related to a possible urinary tract infection. We will continue to monitor her. 2. Hypothyroid. Her TSH was 0.29. Her free T4 was 0.88. We will continue on her Synthroid. 3. Depression. We will continue her on Celexa. 4. Hypertension. We will continue her on her metoprolol and lisinopril. 5. History of cerebrovascular accident. We will continue on aspirin 81 mg p.o. daily. 6. Dementia. We will continue supportive care. 7. Code status: She wishes to be DNR/DNI. 8. DVT prophylaxis: She will be placed on heparin subcu. 9. Fluids, electrolytes, and nutrition: She can have a heart-healthy diet. TIME SPENT: Time was spent on this admission was approximately 60 minutes, greater than half that time was spent [id number] with the patient obtaining my history and physical, other half of the time was spent going over the plan of care and implementing the plan of care. I have discussed with my attending, Dr. Donato Escobar, and he is in agreement with my plan. OLAMIDE SHEFFIELD, MANAGER AMBULATORY [id number]/CPS #: [id number] YANI
[2017-12-11] MEDS: Heparin VIAL(*) 5000 UNITS/ML VIAL (FIVE THOUSAND) SUBCUT SCH (05:38)
[2017-12-11] MEDS ORDERED: Levothyroxine TAB* 100 MCG TAB PO SCH (06:00)
[2017-12-11 07:55] VITALS: BP 122/51
[2017-12-11] MEDS ORDERED: Lisinopril TAB* 5 MG PO SCH (09:00)
[2017-12-11] MEDS ORDERED: Citalopram TAB* 40 MG PO SCH (09:00)
[2017-12-11] MEDS ORDERED: Aspirin EC TAB* 81 MG TAB.EC PO SCH (09:00)
--- NOTE | 2017-12-11 16:06 | DS ---
AMENDED REPORT NOW INCLUDES COSIGNER DESIGNATION - ESIGNED BEFORE ADJUSTMENT DISCHARGE SUMMARY: DATE OF ADMISSION: 12/10/17 DATE OF DISCHARGE: 12/11/17 PATIENT OF: Donato Escobar MD ATTENDING PHYSICIAN: Grady Villela MD * (DICTATED BY PARAG KAMARA ) ADMISSION DIAGNOSES: 1. Dizziness. 2. Dehydration. 3. History of hypertension. 4. Hypothyroidism. 5. Dementia. 6. Frequent urinary tract infection. 7. Remote history of breast cancer. 8. History of cardiovascular accident and transient ischemic attacks. DISCHARGE DIAGNOSES: 1. Dizziness. 2. Dehydration. 3. History of hypertension. 4. Hypothyroidism. 5. Dementia. 6. Frequent urinary tract infection. 7. Remote history of breast cancer. 8. History of cardiovascular accident and transient ischemic attacks. CONSULTATIONS: None. BRIEF MEDICAL HISTORY: Ms. Vasquez is a pleasant 82-year-old female with past medical history significant for hypertension, hypothyroidism, dementia, frequent UTIs and remotely with history of breast cancer. She presented to the emergency room yesterday afternoon with complaints of feeling dizzy while sitting on her chair. She denies any other associated symptoms. She denied any chest pain, palpitations, loss of consciousness, syncope, falling or abdominal pain. She has history of frequent urinary tract infections in the past for which per her daughter, the patient usually presents with symptoms similar to her current dizziness in the emergency room. She had laboratory workup that revealed no evidence of leukocytosis and her chemistry panel was essentially within normal limits. She had urinalysis in the emergency room that was consistent with urinary tract infection with 3+ leukocyte esterase and 2+ white count in the urine. Given her known history of urinary tract infection , we were asked to admit the patient for observation overnight. HOSPITAL COURSE: The patient was admitted under hospitalist services for observation. She received more IV fluid hydration as well as continued her p.o. intake on a regular diet. She was ambulatory, out of bed and denied any recurrent dizziness upon standing up. She was afebrile and her vitals were checked on a regular basis with maximum temperature of 99.1 this morning. She had physical therapy evaluation and deemed safe to ambulate using her walker as she does at home. This morning on examination, she was comfortable and oriented and alert. Her heart was regular rate and rhythm with no rubs, murmurs , or gallops. Her lungs were clear to auscultation bilaterally. Her abdomen was soft, nontender and nondistended without hernias, masses or hepatosplenomegaly. She had no flank pain or CVA tenderness. We had discussion with the patient and her daughter and she wishes to be discharged home and will continue treatment for her UTI for the next 7 days and she plans to follow up with her primary care physician next week. DISCHARGE MEDICATIONS: Include: 1. Tylenol 650 mg p.o. q.6 hours as needed for fever or pain. 2. Aspirin 81 mg p.o. daily. 3. Calcium with multiple vitamins 1 tablet p.o. daily. 4. Ceftin 250 mg p.o. b.i.d. x7 days. 5. Celexa 40 mg p.o. daily. 6. Synthroid 100 mcg p.o. daily. 7. Lisinopril 5 mg p.o. daily. 8. Metoprolol 12.5 mg p.o. daily. PROBLEM LIST: Recurrent urinary tract infection. The patient was discharged in a stable condition and will continue her cephalosporin coverage. Awaiting sensitivity report for her culture urinalysis. PARAG KAMARA [id number]/[facility] #: [id number] MTDD
[2017-12-11] MEDS ORDERED: cefTRIAXone(*) 1 GM in NS 0.9% 50 ML* 50 ML IVPB SCH (17:00)
== END 2017-12-11 09:30 | disposition home or self-care (01) ==
LOC: ED 13:01 → MED 19:58
PROVIDERS: ADMIT Internal Medicine; ATTEND Student in an Organized Health Care Education/Training Program
DX: N39.0 Urinary tract infection, site not specified (principal); R42 Dizziness and giddiness; E86.0 Dehydration; I10 Essential (primary) hypertension; E03.9 Hypothyroidism, unspecified; F03.90 Unspecified dementia, unspecified severity, without behavioral disturbance, psychotic disturbance, mood disturbance, and anxiety; Z85.3 Personal history of malignant neoplasm of breast; Z86.73 Personal history of transient ischemic attack (TIA), and cerebral infarction without residual deficits; K44.9 Diaphragmatic hernia without obstruction or gangrene; Z79.899 Other long term (current) drug therapy; Z88.8 Allergy status to other drugs, medicaments and biological substances; Z83.3 Family history of diabetes mellitus; I51.7 Cardiomegaly; R00.1 Bradycardia, unspecified
CPT/HCPCS: 36415; 71046; 80053; 81003; 81015; 83605; 83735; 84439; 84443; 84484; 85025; 87086; 93005; 96365; 96372; 99284; A9270-GY; G0378; G8978-GP-CI; G8979-GP-CI; G8980-GP-CI; J0696; J1644

== ENCOUNTER 2018-09-16 20:30 | Inpatient (IN) | payer MEDICARE ==
[2018-09-16 21:18] LABS: ABS Basophils 0 10^3/ul (0-0.2); ABS Eosinophils 0.1 10^3/ul (0-0.6); ABS Lymphocytes 0.3 10^3/ul (1.0-4.8); ABS Monocytes 0.6 10^3/ul (0-0.8); ABS Neutrophils 3.7 10^3/ul (1.5-7.7); ABS Nucleated RBC 0 10^3/ul; Eosinophil % 1.4 %; Hematocrit 37 % (35-47); Hemoglobin 12.4 g/dl (12.0-16.0); Lymphocyte % 6.7 %; Mean Corpuscular HGB Conc 33 g/dl (31-36); Mean Corpuscular Hemoglobin 30 pg (27-31); Mean Corpuscular Volume 91 fL (80-97); Mean Platelet Volume 6.8 fL (7.4-10.4); Nucleated Red Blood Cells % 0.1; Platelet Count 141 10^3/ul (150-450); Red Blood Count 4.12 10^6/ul (4.00-5.40); Red Cell Distribution Width 14 % (10.5-15); White Blood Count 4.7 10^3/ul (3.5-10.8)
--- NOTE | 2018-09-16 21:20 | ED ---
Headache - HPI Summary HPI Summary: An 83 y/o female brought in by [facility] ambulance, accompanied by her daughter, presents to [facility] with a chief complaint of headache on 09/16/18. Per EMS the patient had a headache and was dizzy. Per daughter the patient seemed disoriented, unsteady on her feet, and was trembling. She reports a fever. Temperature of 101 in the ED. Per daughter she has not been eating, drinking or sleeping well. She rates her pain as a 6/10 in severity. She c/o some SOB and swollen ankles due to sitting more often. She denies any dental pain or sores, blurry vision, chills, erythema of eyes, sore throat, CP, cough, abdominal pain , N/V, dysuria, hematuria, myalgia and rash. She reports that she has not gone to her PCP, and overmedicated on her prescriptions. Vital signs while in room HR: 75 bpm, O2 Sat: 95, BP: 128/59. - History Of Current Complaint Chief Complaint: EDUrogenitalProblems Stated Complaint: HEADACHE/DIZZINESS PER EMS Time Seen by Provider: 09/16/18 20:39 Hx Obtained From: Patient, Family/Manager Combination, EMS Onset/Duration: Sudden Onset, Started hours ago, Still Present Initially Headache Was: Moderate Currently Pain Is: Current Pain Scale(0-10)= - 6, Moderate Timing: Constant, Hours Character: Unable To Describe Location of Headache: Diffuse Aggravating Factor: Nothing Allevating Factors: Nothing Associated Signs And Symptoms: Dizziness, Fever - Allergies/Home Medications Allergies/Adverse Reactions: Allergies Allergy/AdvReac Type Severity Reaction Status Date / Time codeine Allergy Hives Verified 10/15/17 12:07 anesthetics Allergy Altered Uncoded 10/15/17 12:07 Mental Status PMH/Surg Hx/FS Hx/Imm Hx Endocrine/Hematology History: Reports: Hx Anticoagulant Therapy, Hx Blood Transfusions, Hx Thyroid Disease - HYPOTHYROID, Hx Anemia Denies: Hx Blood Disorders, Hx Bone Marrow Disease, Hx Diabetes, Hx Systemic Lupus Erythematosus, Hx Sickle Cell Disease, Hx Unexplained Bleeding, Other Endocrine/Hematological Disorders Cardiovascular History: Reports: Hx Angina, Other Cardiovascular Problems/ Disorders - JUST STARTED METOPROLOL FOR EXTRA BEATS Denies: Hx Aneurysm, Hx Angioplasty, Hx Auto Implanted Cardiovert Defib, Hx Cardiac Arrest, Hx Cardiomegaly, Hx Congenital Heart Disease, Hx Congestive Heart Failure, Hx Coronary Artery Disease, Hx Deep Vein Thrombosis, Hx Embolism , Hx Hypercholesterolemia, Hx Hypotension, Hx Hypertension, Hx Pacemaker/ICD, Hx Peripheral Vascular Disease, Hx Rheumatic Fever, Hx Syncope, Hx Valvular Heart Disease Respiratory History: Reports: Hx Pneumonia, Hx Seasonal Allergies Denies: Hx Asthma, Hx Chronic Bronchitis, Hx Chronic Obstructive Pulmonary Disease (COPD), Hx Cystic Fibrosis, Hx Lung Cancer, Hx Pleural Effusion, Hx Pulmonary Edema, Hx Pulmonary Embolism, Hx Sleep Apnea, Other Respiratory Problems/Disorders GI History: Reports: Hx Gall Bladder Disease, Hx Ulcer - 15 YRS AGO Denies: Hx Cirrhosis, Hx Crohn's Disease, Hx Diverticulosis, Hx Gastroesophageal Reflux Disease, Hx Gastrointestinal Bleed, Hx Hiatal Hernia, Hx Irritable Bowel, Hx Jaundice, Hx Obstructive Bowel, Hx Ileostomy, Hx Pyloric Stenosis, Other GI Disorders History: Denies: Hx Acute Renal Failure, Hx Chronic Renal Failure, Hx Dialysis, Hx Kidney Infection, Hx Kidney Stones, Hx Renal Disease, Other Problems/ Disorders Musculoskeletal History: Reports: Hx Rheumatoid Arthritis, Hx Orthopedic Injury , Hx Osteoporosis Denies: Hx Arthritis, Hx Back Problems, Hx Bursitis, Hx Congenital Bone Abnormalities, Hx Fibromyalgia, Hx Gout, Hx Scoliosis, Hx Tendonitis, Other Musculoskeletal History Sensory History: Reports: Hx Cataracts - s/p cataract surgery, Hx Contacts or Glasses Denies: Hx Eye Injury, Hx Eye Prosthesis, Hx Glaucoma, Hx Legally Blind, Hx Macular Degeneration, Hx Vision Problem, Hx Deafness, Hx Hearing Aid, Hx Hearing Problem, Other Sensory Impairments Opthamlomology History: Reports: Hx Cataracts - s/p cataract surgery, Hx Contacts or Glasses Denies: Hx Eye Injury, Hx Eye Prosthesis, Hx Glaucoma, Hx Legally Blind, Hx Macular Degeneration, Hx Vision Problem, Other Sensory Impairments Neurological History: Reports: Hx Dementia, Hx Transient Ischemic Attacks (TIA) Denies: Hx Developmental Delay, Hx Headaches, Hx Migraine, Hx Nerve Disease, Hx Seizures, Hx Spinal Cord Injury, Other Neuro Impairments/Disorders Psychiatric History: Denies: Hx Anxiety, Hx Attention Deficit Hyperactivity Disorder, Hx Eating Disorder, Hx Depression, Hx Panic Disorder, Hx Post Traumatic Stress Disorder, Hx Inpatient Treatment, Hx Community Mental Health Tx, Hx Schizophrenia, Hx Bipolar Disorder, Hx Suicide Attempt, Hx of Violent Episodes Against Others, Hx Substance Abuse, Other Psychiatric Issues/Disorders - Cancer History Cancer Type, Location and Year: lt breast ca, Hx Chemotherapy: Yes - BREAST Hx Radiation Therapy: Yes - BREAST - Surgical History Surgery Procedure, Year, and Place: lt hip replacement;. total hysterectomy;. lt elbow with a plate;. lt knee replacement;. rt knee replacement;. appendix; . gallbladder;. lt lumpectomy;. [employer] REVEAL LINQ RECORDER. [place] [facility] Hx Anesthesia Reactions: Yes - ALLERGIC TO LIDOCAINE - Immunization History Date of Tetanus Vaccine: UTD Date of Influenza Vaccine: UTD Infectious Disease History: No Infectious Disease History: Denies: Hx Clostridium Difficile, Hx Hepatitis, Hx Human Immunodeficiency Virus (HIV), Hx of Known/Suspected MRSA, Hx Shingles, Hx Tuberculosis, Hx Known/ Suspected VRE, Hx Known/Suspected VRSA, History Other Infectious Disease, Traveled Outside the [place] in Last 30 Days - Family History Known Family History: Positive: Cardiac Disease, Hypertension - Social History Alcohol Use: None Hx Substance Use: No Substance Use Type: Reports: None Hx Tobacco Use: Yes Smoking Status (MU): Former Smoker Have You Smoked in the Last Year: No Review of Systems Positive: Fever - 101. Negative: Chills Negative: Blurred Vision, Erythema Negative: Sore Throat Negative: Chest Pain Negative: Shortness Of Breath, Cough Negative: Abdominal Pain, Vomiting, Nausea Negative: dysuria, hematuria Positive: Edema. Negative: Myalgia Negative: Rash Neurological: Other - Positive: dizziness Positive: Headache All Other Systems Reviewed And Are Negative: Yes Physical Exam - Summary Physical Exam Summary: Constitutional: Well-developed, Well-nourished, Alert. (-) Distressed Skin: Warm, Dry, no open sores HENT: Normocephalic; Atraumatic Eyes: Conjunctiva normal Neck: Musculoskeletal ROM normal neck. (-) JVD, (-) Stridor, (-) Tracheal deviation Cardio: Rhythm regular, rate normal, Heart sounds normal; Intact distal pulses; The pedal pulses are 2+ and symmetric. Radial pulses are 2+ and symmetric. (-) Murmur Pulmonary/Chest wall: Effort normal. (-) Respiratory distress, (-) Wheezes, (-) Rales Abd: Soft, (-) tenderness, (-) Distension, (-) Guarding, (-) Rebound Musculoskeletal: (-) Edema, no joint swelling. Lymph: (-) Cervical adenopathy Neuro: Alert, Oriented x3, no meningismus Psych: Mood and affect Normal Triage Information Reviewed: Yes Vital Signs On Initial Exam: Initial Vitals Temp Pulse Resp BP Pulse Ox 101 F 71 16 128/59 97 09/16/18 20:41 09/16/18 20:41 09/16/18 20:41 09/16/18 20:41 09/16/18 20:41 Vital Signs Reviewed: Yes Diagnostics - Vital Signs Vital Signs Temp Pulse Resp BP Pulse Ox 09/16/18 20:41 101 F 71 16 128/59 97 - Laboratory Result Diagrams: 09/16/18 21:08 09/16/18 21:08 Lab Statement: Any lab studies that have been ordered have been reviewed, and results considered in the medical decision making process. - Radiology CXR Radiology Interpretation Completed By: ED Physician Summary of Radiographic Findings: No acute disease. Pending official imaging report. - EKG 20:58 Cardiac Rate: NL - 70 bpm EKG Rhythm: Sinus Rhythm Summary of EKG Findings: EKG at 20:58 showed normal sinus rhythm at 70 bpm, no STEMI. Re-Evaluation - Re-Evaluation First Eval Re-Evaluation Time: 22:22 Change: Unchanged Comment: Updated her on diagnostic plan, neck is itchy, denies any SOB, will administer oral benadryl Headache Course/Dx - Course Course Of Treatment: An 83 y/o female brought in by [facility] ambulance, accompanied by her daughter, presents to [facility] with a chief complaint of headache on 09/16/18. Per EMS the patient had a headache and was dizzy. Per daughter the patient seemed disoriented, unsteady on her feet, and was trembling. She reports a fever. Temperature of 101 in the ED. Per daughter she has not been eating, drinking or sleeping well. She rates her pain as a 6/10 in severity. She c/o some SOB and swollen ankles due to sitting more often. She denies any dental pain or sores, blurry vision, chills, erythema of eyes, sore throat, CP, cough, abdominal pain, N/V, dysuria, hematuria, myalgia and rash. She reports that she has not gone to her PCP, and overmedicated on her prescriptions. The physical exam revealed no meningismus, no open sores and no joint swelling. EKG at 20:58 showed normal sinus rhythm at 70 bpm, no STEMI. Bloodwork and chemistries obtained. Troponin of 0.01 and D-dimer of 567 at 21: 08. The patient tested negative for Influenza A and Influenza B. In the ED course the patient was given 975 mg Tylenol PO. Reviewed medical record from ER 4 days ago and her urine culture was negative at the time. CXR impression: No acute disease. Pending official imaging report. The patient was given 50 mg Benadryl PO. The patient will be signed out to Dr. Warner pending CTA chest. - Diagnoses Provider Diagnoses: Elevated d-dimer, Shortness of breath, Fever of unknown origin Discharge - Sign-Out/Discharge Documenting (check all that apply): Sign-Out Patient Signing out patient TO: Krystle Warner - pending CTA chest Patient Received Moderate/Deep Sedation with Procedure: No - Discharge Plan Condition: Stable Referrals: Junior Kimbrough MD [Primary Care Provider] - - Attestation Statements Document Initiated by Scribe: Yes Documenting Scribe: Canelo Sainz Provider For Whom Scribe is Documenting (Include Credential): Moustapha Squires MD Scribe Attestation: ICanelo, scribed for Moustapha Squires MD on 09/16/18 at 2233. Status of Scribe Document: Ready
[2018-09-16] MEDS ORDERED: Acetaminophen TAB* 325 MG PO ONE (21:25)
[2018-09-16 21:29] LABS: Activated Partial Thrombo Time 29.6 seconds (26.0-36.3); INR 0.99 (0.77-1.02)
[2018-09-16 21:33] LABS: Albumin 4.1 g/dL (3.2-5.2); Albumin/Globulin Ratio 1.2 (1-3); BUN/Creatinine Ratio 14.6 (8-20); Calcium 10.1 mg/dL (8.6-10.3); EGFR African American 47.6 (>60); EGFR Non-African American 39.3 (>60); Globulin 3.3 g/dL (2-4); Potassium 4.4 mmol/L (3.5-5.0); Total Bilirubin 0.7 mg/dL (0.2-1.0); Total Protein 7.4 g/dL (6.4-8.9)
[2018-09-16 21:35] LABS: Troponin I 0.01 ng/mL (<0.04)
[2018-09-16 21:37] LABS: Influenza A Molecular NEGATIVE (Negative); Influenza B Molecular NEGATIVE (Negative)
[2018-09-16 22:10] LABS: C Reactive Protein 9.28 mg/L (<8.01)
[2018-09-16] MEDS ORDERED: diPHENhydraMINE PO* 25 MG PO ONE (22:21)
[2018-09-17] MEDS ORDERED: Midazolam* 1 MG/ML 5 ML VIAL (5 MG) SLOW PUSH ONE (00:22)
[2018-09-17] MEDS ORDERED: Midazolam* 1 MG/ML 5 ML VIAL (5 MG) IV ONE (00:22)
[2018-09-17] MEDS ORDERED: Midazolam* 1 MG/ML 5 ML VIAL (5 MG) ONE (00:23)
--- NOTE | 2018-09-17 00:58 | ED ---
Progress - Progress Note Progress Note: Patient was signed out from Dr. Squires upon shift change pending CTA and disposition. Re-Evaluation - Re-Evaluation First Eval Re-Evaluation Time: 22:22 Change: Unchanged Comment: Updated her on diagnostic plan, neck is itchy, denies any SOB, will administer oral benadryl Course/Dx - Course Course Of Treatment: Patient was signed out from Dr. Squires upon shift change pending CTA and disposition. An 83 y/o female brought in by [facility] ambulance, accompanied by her daughter, presents to [facility] with a chief complaint of headache on 09/16/18. Patient became agitated. Unable to lie on the CAT scan table. This reaction is most likely due to a combination of patients dementia and adverse reaction to Benadryl. Patient has fever, normal white blood cell count, and negative flu. The symptoms are most likely a flu like illness. Consult with Dr. Finney (hospitalist) at 0050. She agrees to admit the patient for further evaluation - Diagnoses Provider Diagnoses: Viral syndrome Discharge - Sign-Out/Discharge Documenting (check all that apply): Patient Departure - [place] [facility] Received Moderate/Deep Sedation with Procedure: No - Discharge Plan Condition: Stable Disposition: ADMITTED TO [facility] Referrals: Junior Kimbrough MD [Primary Care Provider] - - Attestation Statements Document Initiated by Scribe: Yes Documenting Scribe: Rashmi Scales Provider For Whom Cade is Documenting (Include Credential): Dr. Krystle Warner MD Scribe Attestation: I, Rashmi Scales, scribed for Dr. Krystle Warner MD on 09/17/18 at 0058. Status of Scribe Document: Ready
[2018-09-17] MEDS ORDERED: Haloperidol INJ IV/IM* 5 MG/ML AMP IM ONE ×2 (01:38→03:19)
[2018-09-17] MEDS ORDERED: Haloperidol INJ IV/IM* 5 MG/ML AMP ONE (01:38)
[2018-09-17 02:42] LABS: Urine Appearance Clear; Urine Bacteria Absent (Absent); Urine Bilirubin Negative (Negative); Urine Blood 1+ (Negative); Urine Color Yellow; Urine Glucose Negative (Negative); Urine Ketones 1+ (Negative); Urine Nitrite Negative (Negative); Urine Protein Negative (Negative); Urine Red Blood Cell Trace(0-2/hpf) (Absent); Urine Squamous Epithelial Cell Present (Absent); Urine Urobilinogen Negative (Negative); Urine White Blood Cell Trace(0-5/hpf) (Absent)
[2018-09-17] MEDS ORDERED: LORazepam INJ* 2 MG/ML 1 ML VIAL IM ONE (03:20)
[2018-09-17] MEDS: Acetaminophen TAB* 325 MG PO PRN ×2 (05:52→16:27)
[2018-09-17] MEDS ORDERED: Heparin VIAL(*) 5000 UNITS/ML VIAL (FIVE THOUSAND) SUBCUT SCH (06:00)
[2018-09-17] MEDS: NS 0.9% 1000 ML** 1,000 ML IV SCH ×2 (06:32→08:48)
--- NOTE | 2018-09-17 07:21 | HP ---
CC: Dr. Kimbrough * HISTORY AND PHYSICAL: DATE OF ADMISSION: 09/17/18 PRIMARY CARE PROVIDER: Dr. Kimbrough. CHIEF COMPLAINT: Fever and confusion. HISTORY OF PRESENT ILLNESS: Ms. 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 The patient's story begins this past 09/12/18, when she was brought to the emergency room for being dizzy and disoriented. At that time, she had a urinalysis performed. There was concern that the urinalysis represented a urinary tract infection and she therefore was prescribed Bactrim. She was inappropriately taking her Bactrim pills taking 2 in the morning and 1 in the evening. The patient's daughter states that suddenly at approximately 4:30 p.m. on 09/16/18, she developed a fever. She also became much more confused and she was unsteady on her feet. The patient also complained of increased shortness of breath above her baseline. The patient herself currently is severely delirious and unable to answer any questions. The patient when she arrived to the emergency room was essentially at her baseline mental status. However, she began itching while in the ER and was therefore given 50 mg of Benadryl. Following the Benadryl, the patient became quite confused. She then received Versed, tried to get a CT angiogram of her chest, but this made the confusion worse. At this point, the patient is severely agitated and restless and this is despite receiving a total of 5 mg of Haldol and 2 mg of Ativan. PAST MEDICAL HISTORY: 1. Breast cancer. 2. Vascular dementia. 3. History of CVA/TIA. 4. Hypothyroidism. 5. Hypertension. PAST SURGICAL HISTORY: 1. Left elbow surgery. 2. Right oophorectomy. 3. Left breast lumpectomy. 4. Hysterectomy. 5. Cholecystectomy. 6. Bilateral knee replacements. 7. Left hip replacement. ALLERGIES: CODEINE, BENADRYL, VERSED. FAMILY HISTORY: Mom of ovarian cancer. Dad of emphysema. SOCIAL HISTORY: The patient is a former smoker, quitting 50 to 60 years ago, smoking for less than 10 years, less than a pack a day. She does not drink any alcohol. 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 She lives at [facility]. She is . She has 6 children. Her daughter Odessa is her healthcare proxy. REVIEW OF SYSTEMS: Per the patient's daughter, patient had no appetite on 02/27. She had the fever as noted above. She also complained of headache. Rest of the review of systems is unobtainable from the patient due to severe delirium. PHYSICAL EXAMINATION GENERAL: The patient is a well-developed, elderly female, seen lying in the bed , squirming all over, reaching for things in the air that are not present. VITAL SIGNS: Blood pressure 159/83, pulse 71, respirations 22, temp 100, O2 sat 99%.on room air. HEENT: Pupils are equal and round. Extraocular muscles are intact. Oropharynx is clear. Oral mucosa is slightly dry. There is no submandibular, cervical, or supraclavicular adenopathy. Thyroid is not enlarged. No thyroid nodules noted. PULMONARY: Lungs are clear to auscultation bilaterally. CARDIAC: Normal S1, S2. Regular rate and rhythm. I do not appreciate any murmurs there. There is no lower extremity edema. ABDOMEN: Bowel sounds present. Abdomen is soft, nontender, nondistended. MUSCULOSKELETAL: There is no cyanosis or clubbing of the digits. There is full active range of motion of all 4 extremities. NEUROLOGIC: The patient appears to have full strength of all extremities. She is severely delirious. SKIN: Hot. It is dry. There are no rashes. PSYCH: As above. The patient is delirious. DIAGNOSTIC STUDIES/LAB DATA: WBC 4.7, hemoglobin 12.4, hematocrit 37, platelets 141. INR 0.99. D-dimer 567. Sodium 129, potassium 4.3, chloride 97 , CO2 24, BUN 19, creatinine 1.3, glucose 88, lactic acid 0.7 to 1.1, calcium 10.1, bilirubin 0.7, AST 24, ALT 10, alk phos 98, troponin 0.01. CRP 9.28. Albumin 4.1. Urinalysis reveals clear urine with specific gravity of 1.010, 1+ ketones, 1+ blood. Trace leukocyte esterase, absent bacteria. Influenza A and B negative. Chest x-ray to my interpretation appears clear. CT brain reveals no acute intracranial abnormality. Old right MCA and left ADULT HE[facility] CLINICAL NURSE SPECIALIST territorial infarcts were noted. Age-related atrophy and mild chronic small vessel ischemic disease is noted. EKG reveals normal sinus rhythm without any acute ST-T wave abnormalities. ASSESSMENT AND PLAN: Ms. Hernandez is an 83-year-old female who has a history of vascular dementia, who was brought to the emergency room for concerns of increased confusion and fever, but subsequently received Benadryl in the emergency room, which led to delirium followed by worsened delirium after receiving Versed. 1. Delirium. At this point, the patient is severely delirious from both Benadryl and likely Versed administration. The patient is quite agitated at this time. She is unable to lie still in the bed. She received 2.5 mg of Haldol approximately at 1:30 a.m. on 09/17/18 followed by another 2.5 mg of Haldol at approximately 3:30 a.m. on 09/17/18 as well as Ativan 2 mg IV. The patient continues to be quite agitated at this time. We will try to give medications routinely and see how she does with this. If she continues to be severely agitated, we will need to attempt giving another dose or different medication to improve her agitation. I hate to pile on more medications to complicate the picture at this time. As the patient did have a fever of 101 on presentation, meningitis must be considered. However, per the ER nurse, the patient's mental status was no where near where it is at this point. She was at her baseline and able to carry on conversation, though as we dug deeper into obtaining history, the patient's dementia would show. For now, I am going to hold off on asking for lumbar puncture as again I think this would be low yield as the patient's mental status shortly changed after receiving medications in the ER. 2. Fever. Etiology again is not clear. On 09/12/18, there was concern for urinary tract infection; however, the urinalysis was negative. I do not believe the patient in fact had a urinary tract infection. Chest x-ray looks clear. Blood cultures are pending at this time. I feel that the patient's fever and now mild thrombocytopenia may be secondary to a viral illness. We will continue to monitor her temperature and provide supportive care. 3. Hyponatremia and slight creatinine elevation above baseline. The patient's labs are significantly different from 09/12/18. The patient appears to be volume depleted. We will start normal saline at 100 mL/hour. Repeat labs will be obtained tomorrow. 4. Hypothyroidism. We will continue Synthroid at the current dose. 5. Vascular dementia. We will continue aspirin. 6. Hypertension. We will continue lisinopril and metoprolol. 7. Depression. Continue Celexa. 8. DVT prophylaxis: According to the Adult Thrombosis Prophylaxis Risk Factor Assessment Guide, the patient has a total risk factor score of 6, making her the highest risk. Heparin 5000 units subcutaneous q.8 hours will be utilized as DVT prophylaxis. 9. Code status is DNR. TIME SPENT: 55 minutes were spent admitting this patient. [id number]/CPS #: [id number] MTDD
[2018-09-17] MEDS: Aspirin EC TAB* 81 MG TAB.EC PO SCH (10:03)
[2018-09-17] MEDS: Metoprolol Succinate XL TAB* 25 MG PO SCH (10:03)
[2018-09-17] MEDS: Lisinopril TAB* 5 MG PO SCH (10:03)
[2018-09-17] MEDS: Citalopram TAB* 40 MG PO SCH (10:03)
[2018-09-17] MEDS: Enoxaparin(*) 40 MG/0.4 ML SYR SUBCUT SCH (10:44)
[2018-09-17 11:15] LABS: BUN/Creatinine Ratio 15.3 (8-20); Calcium 9.8 mg/dL (8.6-10.3); EGFR African American 53.2 (>60); Potassium 4.1 mmol/L (3.5-5.0)
--- NOTE | 2018-09-17 14:56 | PN ---
Subjective Interval History: Pt somnolent this morning (was given diphenhydramine and benzos overnight) and not able to answer questions. By afternoon, more responsive and able to follow commands with family at bedside. Pt reports chronic L hip pain. Denies headache or muscle aches. Denies photophobia, nausea, abdominal pain, dysuria. No diarrhea. Daughter at bedside reports that patient is more confused than her baseline but otherwise with no new issues. Objective Active Medications: Acetaminophen (Tylenol Tab*) 650 mg PO Q6H PRN PRN Reason: pain or fever Last Admin: 09/17/18 05:52 Dose: 650 mg Aspirin (Aspirin Ec Tab*) 81 mg PO DAILY [facility] Last Admin: 09/17/18 10:03 Dose: Not Given Citalopram Hydrobromide (Celexa Tab*) 40 mg PO DAILY [facility] Last Admin: 09/17/18 10:03 Dose: Not Given Enoxaparin Sodium (Lovenox(*)) 40 mg SUBCUT Q24H [facility] Last Admin: 09/17/18 10:44 Dose: 40 mg Sodium Chloride (Ns 0.9% 1000 Ml) 1,000 mls @ 100 mls/hr IV PER RATE [facility] Last Admin: 09/17/18 08:48 Dose: 100 mls/hr Levothyroxine Sodium (Synthroid Tab*) 100 mcg PO [id number] [facility] Lisinopril (Prinivil Tab*) 5 mg PO DAILY [facility] Last Admin: 09/17/18 10:03 Dose: Not Given Metoprolol Succinate (Toprol Xl Tab*) 12.5 mg PO DAILY [facility] Last Admin: 09/17/18 10:03 Dose: Not Given Vital Signs - 8 hr 09/17/18 09/17/18 08:50 11:59 Temperature 96.8 F Pulse Rate 85 Respiratory 21 20 Rate Blood Pressure 132/52 (mmHg) O2 Sat by Pulse 91 95 Oximetry Oxygen Devices in Use Now: None Appearance: lying on bed supine, nontoxic and NAD, minimally interactive Eyes: - - pupils constricted b/l but not pinpoint; they are equal and reactive to light Ears/Nose/Mouth/Throat: - - dry mouth Neck: - - supple; able to touch chin to chest when asked Respiratory: - - clear anteriorly Cardiovascular: RRR Abdominal: - - soft, nontender, nondistended, no hepatomegaly Lymphatic: No Cervical Adenopathy Extremities: No Edema Skin: No Rash or Ulcers Neurological: - - alert; responds appropriately to questions Result Diagrams: 09/16/18 21:08 09/17/18 10:43 Microbiology and Other Data: Microbiology 09/16/18 20:40 Influenza Types A,B Antigen - Final Nasal Specimen received for Influenza A/B Molecular testing Assess/Plan/Problems-Billing Assessment: Ms. Vasquez is an 83 year old woman with dementia, h/o CVA, HTN, hypothyroid, frequent UTIs, presenting from assisted living facility with fever and altered mental status. Pt had recently completed Bactrim for UTI and was also given amoxicillin for dental procedure 2 days prior to admission. Family reports intermittent confusion, decreased PO, and gait unsteadiness this past week. Pt with fever on presentation, dry on exam, mild hyponatremia and MAIA (improving with IVF); no leukocytosis, clear UA, clear CXR. - Patient Problems (1) Altered mental status, unspecified Comment: Unclear etiology of AMS and fever at this time. Pt with poor baseline and recent UTI but seems to have completed treatment. Also took amoxicillin recently for dental procedure, which may confound our studies. Could have viral syndrome causing fever (flu negative). PE also (noted to have high d-dimer and CT-PE pending), but unlikely to explain constellation of symptoms. Will monitor closely for signs of menigitis and have low threshold to perform LP, but pt currently without headache/photophobia/nausea, neck is supple. While vitals are stable and pt is without leukocytosis or lactate, will hold off on antibiotics. Diphenhydramine/benzos added to allergies to avoid use in future - would prefer antipsychotics for agitation if symptoms arise. - f/u chest CT - f/u BCx and repeat prn - monitor vitals closely (2) Vascular dementia with behavior disturbance Comment: -reorient, window, minimize noise/interventions -consider low-dose haloperidol prn if agitated - NOT benzos or Benadryl -currently ordered for aspirin. Given history of falls, would consider stopping this medication given risk of bleeding. Reasses on discharge. (3) Dehydration Comment: MAIA and hyponatremia improving - currently on gentle IVF while not tolerating PO; cont to monitor BMP and exam (4) Hypothyroidism Comment: - continue home levothyroxin 100mcg 6 days/week - f/u TSH - had a low TSH last year - iatrogenic hyperthyroidism could cause AMS and fevers but currently low on ddx (5) Hypertension Comment: - pt refusing PO; BPs wnl; can resume home BP meds (metoprolol suc 12.5 and lisinopril 5) when needed (6) Depression Comment: can take home citalopram when tolerating PO (7) DVT prophylaxis Current Visit: No Status: Acute Code(s): SVE3822 - SNOMED Code(s): 099689315 Comment: continue heparin subq (8) DNR (do not resuscitate) Comment: daughters: Odessa [phone] Erin [phone]
[2018-09-17] MEDS ORDERED: Iodixanol* (CONTRAST) 320 MG/ML 100 ML SDV IV ONE (15:38)
[2018-09-18] MEDS ORDERED: Levothyroxine TAB* 100 MCG TAB PO SCH (06:00)
[2018-09-18 07:47] LABS: ABS Basophils 0 10^3/ul (0-0.2); ABS Eosinophils 0.1 10^3/ul (0-0.6); ABS Lymphocytes 0.6 10^3/ul (1.0-4.8); ABS Monocytes 0.5 10^3/ul (0-0.8); ABS Neutrophils 3.1 10^3/ul (1.5-7.7); ABS Nucleated RBC 0 10^3/ul; Eosinophil % 3.1 %; Hematocrit 39 % (35-47); Hemoglobin 12.8 g/dl (12.0-16.0); Lymphocyte % 14.4 %; Mean Corpuscular HGB Conc 33 g/dl (31-36); Mean Corpuscular Hemoglobin 30 pg (27-31); Mean Corpuscular Volume 91 fL (80-97); Mean Platelet Volume 6.9 fL (7.4-10.4); Nucleated Red Blood Cells % 0; Platelet Count 126 10^3/ul (150-450); Red Blood Count 4.26 10^6/ul (4.00-5.40); Red Cell Distribution Width 14 % (10.5-15); White Blood Count 4.3 10^3/ul (3.5-10.8)
[2018-09-18] MEDS: Citalopram TAB* 40 MG PO SCH (08:01)
[2018-09-18] MEDS: Acetaminophen TAB* 325 MG PO PRN (08:01)
[2018-09-18] MEDS: Aspirin EC TAB* 81 MG TAB.EC PO SCH (08:02)
[2018-09-18] MEDS: Lisinopril TAB* 5 MG PO SCH (08:02)
[2018-09-18] MEDS: Metoprolol Succinate XL TAB* 25 MG PO SCH (08:02)
[2018-09-18 08:12] LABS: Calcium 9.3 mg/dL (8.6-10.3); EGFR African American 70.9 (>60); EGFR Non-African American 58.6 (>60); Potassium 4.1 mmol/L (3.5-5.0)
[2018-09-18 09:09] LABS: TSH (Thyroid Stimulating Horm) 7.07 mcIU/mL (0.34-5.60)
--- NOTE | 2018-09-18 10:00 | PN ---
Subjective Date of Service: 09/18/18 Interval History: HD # 2 on 09/18 83 year old woman with dementia, h/o CVA, HTN, hypothyroid, frequent UTIs, presenting from [place] with fever and altered mental status. Overnight no acute events, no PRNS, VSS, afebrile, + BM, noted good UOP Labs reviewed, mild HypoNa 132, TSH elevated 7 This afternoon, seen at bedside with family. She has made a remarkable improvement today, ambulating with walker, pleasant, AOx1, which is her baseline and eating her meals. Still a bit weak, but review of culture data with no clear source of infection. Remains afebrile. Pt herself is pleasant and well, c/o chornic L hip pain but otherwise quite nice and polite, denies CP, SOB , GI, or other MSK sx. Walks with walker at baseline, Aox1 at baseline, lives unassisted in longterm with meal prep on site. Objective Active Medications: Acetaminophen (Tylenol Tab*) 650 mg PO Q6H PRN PRN Reason: pain or fever Last Admin: 09/18/18 08:01 Dose: 650 mg Aspirin (Aspirin Ec Tab*) 81 mg PO DAILY [facility] Last Admin: 09/18/18 08:02 Dose: 81 mg Citalopram Hydrobromide (Celexa Tab*) 40 mg PO DAILY [facility] Last Admin: 09/18/18 08:01 Dose: 40 mg Enoxaparin Sodium (Lovenox(*)) 40 mg SUBCUT Q24H [facility] Last Admin: 09/17/18 10:44 Dose: 40 mg Sodium Chloride (Ns 0.9% 1000 Ml) 1,000 mls @ 100 mls/hr IV PER RATE [facility] Last Admin: 09/17/18 08:48 Dose: 100 mls/hr Levothyroxine Sodium (Synthroid Tab*) 100 mcg PO [id number]@0600 [facility] Last Admin: 09/18/18 07:11 Dose: 100 mcg Lisinopril (Prinivil Tab*) 5 mg PO DAILY [facility] Last Admin: 09/18/18 08:02 Dose: 5 mg Metoprolol Succinate (Toprol Xl Tab*) 12.5 mg PO DAILY [facility] Last Admin: 09/18/18 08:02 Dose: 12.5 mg Vital Signs - 8 hr 09/18/18 04:22 Temperature 97.3 F Pulse Rate 63 Respiratory 18 Rate Blood Pressure 141/66 (mmHg) O2 Sat by Pulse 96 Oximetry Oxygen Devices in Use Now: None Appearance: Pleasant woman in NAD Eyes: No Scleral Icterus, PERRLA Ears/Nose/Mouth/Throat: NL Teeth, Lips, Gums, - - Dry MM Neck: NL Appearance and Movements; NL JVP, No Thyroid Enlargement, Masses Respiratory: Symmetrical Chest Expansion and Respiratory Effort, Clear to Auscultation Cardiovascular: NL Sounds; No Murmurs; No JVD, RRR Abdominal: NL Sounds; No Tenderness; No Distention, No Hepatosplenomegaly Lymphatic: No Cervical Adenopathy Skin: No Rash or Ulcers Neurological: - - AOx1 Result Diagrams: 09/18/18 07:37 09/18/18 07:37 Microbiology and Other Data: Microbiology 09/16/18 20:40 Influenza Types A,B Antigen - Final Nasal Specimen received for Influenza A/B Molecular testing Assess/Plan/Problems-Billing Assessment: Ms. Vasquez is an 83 year old woman with dementia, h/o CVA, HTN, hypothyroid, frequent UTIs, presenting from assisted living facility with fever and altered mental status. Pt had recently completed Bactrim for UTI and was also given amoxicillin for dental procedure 2 days prior to admission. Family reports intermittent confusion, decreased PO, and gait unsteadiness this past week, possibly all 2/2 to virus. Pt with fever on presentation, dry on exam, mild hyponatremia and MAIA (improving with IVF); no leukocytosis, clear UA, clear CXR. Mildly elevated TSH - Patient Problems (1) Altered mental status, unspecified Current Visit: Yes Status: Acute Code(s): R41.82 - ALTERED MENTAL STATUS, UNSPECIFIED SNOMED Code(s): 549075202 Comment: Unclear etiology of AMS and fever at this time. Pt with poor baseline and recent UTI but seems to have completed treatment. Also took amoxicillin recently for dental procedure, which may confound our studies. Could have viral syndrome causing fever (flu negative) and low cognitive reserve causes acute decompensation. --Remarkable improvement today, less likely meningitis --Hold abx --Diphenhydramine/benzos added to allergies to avoid use in future - would prefer antipsychotics for agitation if symptoms arise. - CT Chest performd for elevated D Dimer is negative - f/u BCx and repeat prn (2) Dehydration Current Visit: Yes Status: Acute Code(s): E86.0 - DEHYDRATION SNOMED Code( s): 52906507 Comment: MAIA and hyponatremia improving - currently on gentle IVF while not tolerating PO; cont to monitor BMP and exam (3) Depression Current Visit: Yes Status: Acute Code(s): F32.9 - MAJOR DEPRESSIVE DISORDER , SINGLE EPISODE, UNSPECIFIED SNOMED Code(s): 29778722 Comment: can take home citalopram when tolerating PO (4) Hypertension Current Visit: Yes Status: Acute Code(s): I10 - ESSENTIAL (PRIMARY) HYPERTENSION SNOMED Code(s): 00754742 Comment: - pt refusing PO; BPs wnl; can resume home BP meds (metoprolol suc 12.5 and lisinopril 5) when needed (5) Vascular dementia with behavior disturbance Current Visit: Yes Status: Acute Code(s): F01.51 - VASCULAR DEMENTIA WITH BEHAVIORAL DISTURBANCE SNOMED Code(s): 216345994998107 Comment: -reorient, window, minimize noise/interventions -consider low-dose haloperidol prn if agitated - NOT benzos or Benadryl -currently ordered for aspirin. Given history of falls, would consider stopping this medication given risk of bleeding. Reasses on discharge. (6) Hypothyroidism Current Visit: Yes Status: Acute Code(s): E03.9 - HYPOTHYROIDISM, UNSPECIFIED SNOMED Code(s): 71475145 Comment: - TSH mildly elevated at 7, increase slightly to 112 - had a low TSH last year - iatrogenic hyperthyroidism could cause AMS and fevers but clearly not contributing (7) Atrial fibrillation Current Visit: No Status: Acute Code(s): I48.91 - UNSPECIFIED ATRIAL FIBRILLATION SNOMED Code(s): 66424399 Comment: Controlled with Metoprolol (8) DNR (do not resuscitate) Current Visit: No Status: Acute Comment: daughters: dOessa [phone] Erin [phone] Discussed [facility] program with daughters Status and Disposition: Discharge to home likely tomorrow 09/19 if passes PT
[2018-09-18] MEDS: NS 0.9% 1000 ML** 1,000 ML IV SCH (10:59)
[2018-09-18] MEDS: Enoxaparin(*) 40 MG/0.4 ML SYR SUBCUT SCH (10:59)
[2018-09-19] MEDS: Acetaminophen TAB* 325 MG PO PRN (00:42)
[2018-09-19] MEDS: NS 0.9% 1000 ML** 1,000 ML IV SCH (01:02)
[2018-09-19] MEDS ORDERED: Levothyroxine TAB* 112 MCG TAB PO SCH (06:00)
[2018-09-19 06:41] LABS: ABS Basophils 0 10^3/ul (0-0.2); ABS Eosinophils 0.2 10^3/ul (0-0.6); ABS Lymphocytes 0.9 10^3/ul (1.0-4.8); ABS Monocytes 0.5 10^3/ul (0-0.8); ABS Nucleated RBC 0 10^3/ul; Hematocrit 36 % (35-47); Hemoglobin 12.2 g/dl (12.0-16.0); Lymphocyte % 19.6 %; Mean Corpuscular HGB Conc 34 g/dl (31-36); Mean Corpuscular Hemoglobin 30 pg (27-31); Mean Corpuscular Volume 90 fL (80-97); Nucleated Red Blood Cells % 0.1; Platelet Count 118 10^3/ul (150-450); Red Blood Count 4.01 10^6/ul (4.00-5.40); Red Cell Distribution Width 14 % (10.5-15); White Blood Count 4.6 10^3/ul (3.5-10.8)
[2018-09-19 06:55] LABS: Calcium 8.8 mg/dL (8.6-10.3); Potassium 3.6 mmol/L (3.5-5.0)
[2018-09-19 07:01] LABS: BUN/Creatinine Ratio 12.5 (8-20); EGFR African American 83.3 (>60); EGFR Non-African American 68.8 (>60)
[2018-09-19] MEDS: Aspirin EC TAB* 81 MG TAB.EC PO SCH (10:39)
[2018-09-19] MEDS: Enoxaparin(*) 40 MG/0.4 ML SYR SUBCUT SCH (10:39)
[2018-09-19] MEDS: Lisinopril TAB* 5 MG PO SCH (10:39)
[2018-09-19] MEDS: Metoprolol Succinate XL TAB* 25 MG PO SCH (10:39)
[2018-09-19] MEDS: Citalopram TAB* 40 MG PO SCH (10:39)
--- NOTE | 2018-09-19 11:52 | PN ---
Subjective Date of Service: 09/19/18 Interval History: HD # 3 on 09/19 83 year old woman with dementia, h/o CVA, HTN, hypothyroid, frequent UTIs, presenting from [place] with fever and altered mental status. Overnight no acute events, no PRNS, VSS, afebrile, + BM, noted good UOP Labs reviewed, wholly normal aside from mild low CO2, hypNA resolved, culture data remains neg, have added on B12 This morning seen after breakfast still c/o feeling tired, just exhausted but denies cesar confusion (her baseline is AOx1-she is not currently altered beyond that) but walking, eating, toileting herself. She denies chest pain shortness of breath or GI or MSK compalints Walks with walker at baseline, lives unassisted in residential with meal prep on site. Objective Active Medications: Acetaminophen (Tylenol Tab*) 650 mg PO Q6H PRN PRN Reason: pain or fever Last Admin: 09/19/18 00:42 Dose: 650 mg Aspirin (Aspirin Ec Tab*) 81 mg PO DAILY [facility] Last Admin: 09/19/18 10:39 Dose: 81 mg Citalopram Hydrobromide (Celexa Tab*) 40 mg PO DAILY [facility] Last Admin: 09/19/18 10:39 Dose: 40 mg Enoxaparin Sodium (Lovenox(*)) 40 mg SUBCUT Q24H [facility] Last Admin: 09/19/18 10:39 Dose: 40 mg Levothyroxine Sodium (Synthroid Tab*) 112 mcg PO [id number]@0600 [facility] Last Admin: 09/19/18 04:58 Dose: 112 mcg Lisinopril (Prinivil Tab*) 5 mg PO DAILY [facility] Last Admin: 09/19/18 10:39 Dose: 5 mg Metoprolol Succinate (Toprol Xl Tab*) 12.5 mg PO DAILY [facility] Last Admin: 09/19/18 10:39 Dose: 12.5 mg Vital Signs - 8 hr 09/19/18 09/19/18 04:15 07:45 Temperature 97.7 F Pulse Rate 59 Respiratory 17 20 Rate Blood Pressure 116/77 (mmHg) O2 Sat by Pulse 97 97 Oximetry Oxygen Devices in Use Now: None Appearance: Pleasant woman in NAD Eyes: No Scleral Icterus, PERRLA Ears/Nose/Mouth/Throat: NL Teeth, Lips, Gums, Mucous Membranes Moist Respiratory: Symmetrical Chest Expansion and Respiratory Effort, Clear to Auscultation Cardiovascular: NL Sounds; No Murmurs; No JVD, RRR Abdominal: NL Sounds; No Tenderness; No Distention, No Hepatosplenomegaly Lymphatic: No Cervical Adenopathy Extremities: No Edema Skin: No Rash or Ulcers Neurological: - - AOx1 Lines/Tubes/Other Access: Clean, Dry and Intact Peripheral IV - KVO Result Diagrams: 09/19/18 06:24 09/19/18 06:24 Microbiology and Other Data: Microbiology 09/16/18 20:40 Influenza Types A,B Antigen - Final Nasal Specimen received for Influenza A/B Molecular testing Assess/Plan/Problems-Billing Assessment: Ms. Vasquez is an 83 year old woman with dementia, h/o CVA, HTN, hypothyroid, frequent UTIs, presenting from assisted living facility with fever and altered mental status. Pt had recently completed Bactrim for UTI and was also given amoxicillin for dental procedure 2 days prior to admission. Family reports intermittent confusion, decreased PO, and gait unsteadiness this past week, possibly all 2/2 to virus. Pt with fever on presentation, dry on exam, mild hyponatremia and MAIA (improving with IVF); no leukocytosis, clear UA, clear CXR. Mildly elevated TSH. She has improved towards baseline and nearing d/c. - Patient Problems (1) Altered mental status, unspecified Current Visit: Yes Status: Acute Code(s): R41.82 - ALTERED MENTAL STATUS, UNSPECIFIED SNOMED Code(s): 681846314 Comment: Unclear etiology of AMS and fever at this time. Pt with poor baseline and recent UTI but seems to have completed treatment. Also took amoxicillin recently for dental procedure, which may confound our studies. Could have viral syndrome causing fever (flu negative) and low cognitive reserve causes acute decompensation. --Remarkable improvement today, less likely meningitis --Hold abx --Diphenhydramine/benzos added to allergies to avoid use in future - would prefer antipsychotics for agitation if symptoms arise. - CT Chest performd for elevated D Dimer is negative - TSH elevated, did increase dose, B12 pending (2) Dehydration Current Visit: Yes Status: Acute Code(s): E86.0 - DEHYDRATION SNOMED Code( s): 49164321 Comment: MAIA and hyponatremia improved -STOP IVF - Did discuss [facility] program with family as dementia requires her at this time frequnent prompting to drink (3) Depression Current Visit: Yes Status: Acute Code(s): F32.9 - MAJOR DEPRESSIVE DISORDER , SINGLE EPISODE, UNSPECIFIED SNOMED Code(s): 96784411 Comment: can take home citalopram when tolerating PO (4) Hypertension Current Visit: Yes Status: Acute Code(s): I10 - ESSENTIAL (PRIMARY) HYPERTENSION SNOMED Code(s): 62625705 Comment: -Taking Metop and Lisinopril currently, normotensive (5) Vascular dementia with behavior disturbance Current Visit: Yes Status: Acute Code(s): F01.51 - VASCULAR DEMENTIA WITH BEHAVIORAL DISTURBANCE SNOMED Code(s): 153294801282377 Comment: -reorient, window, minimize noise/interventions -consider low-dose haloperidol prn if agitated - NOT benzos or Benadryl -currently ordered for aspirin. Given history of falls, would consider stopping this medication given risk of bleeding. Reasses on discharge. -B12 pending, TSH slight elevated (6) Hypothyroidism Current Visit: Yes Status: Acute Code(s): E03.9 - HYPOTHYROIDISM, UNSPECIFIED SNOMED Code(s): 08564250 Comment: - TSH mildly elevated at 7, increase slightly to 112 - had a low TSH last year - iatrogenic hyperthyroidism could cause AMS and fevers but clearly not contributing (7) Atrial fibrillation Current Visit: No Status: Acute Code(s): I48.91 - UNSPECIFIED ATRIAL FIBRILLATION SNOMED Code(s): 03983082 Comment: Controlled with Metoprolol (8) DNR (do not resuscitate) Current Visit: No Status: Acute Comment: daughters: Odessa [phone] Erin [phone] Discussed [facility] program with daughters Status and Disposition: Discharge to home likely if passes PT
[2018-09-19] MEDS ORDERED: Cyanocobalamin INJ * 1,000 MCG/ML VIAL 1 ML VIAL IM ONE (13:32)
[2018-09-19 15:22] VITALS: BP 141/71
--- NOTE | 2018-09-20 01:11 | DS ---
DISCHARGE SUMMARY: DATE OF ADMISSION: 09/16/18 DATE OF DISCHARGE: 09/19/18 PRIMARY CARE PROVIDER: Junior Kimbrough MD PRIMARY DIAGNOSIS: Altered mental status. SECONDARY DIAGNOSES: 1. Dementia. 2. History of cerebrovascular accident. 3. Hypertension. 4. Hypothyroidism. 5. Frequent urinary tract infections. 6. B12 deficiency. MEDICATIONS ON DISCHARGE: 1. Levothyroxine 112 mcg p.o. daily. 2. Cyanocobalamin 1000 mcg p.o. q. day. 3. Lisinopril 5 mg p.o. daily. 4. Metoprolol succinate 12.5 mg p.o. daily. 5. Citalopram 40 mg p.o. daily. 6. Calcium carbonate and vitamin D3 one tab p.o. daily. 7. Aspirin 81 mg 1 tab p.o. daily. 8. Acetaminophen 650 mg p.o. q.4 hours p.r.n. for pain. Medication changes on this hospitalization: Increase of levothyroxine to 112 mcg from 100 mcg in the addition of cyanocobalamin 1000 mcg. HOSPITAL COURSE AND PRESENTATION OF ILLNESS: This is an 83-year-old female with above past medical history, who presented to the emergency room on 09/16/18 , brought in by her daughter for altered mental status, disoriented, and unsteady balance. Also there was a documented fever of 100.8 both at home and in the emergency room. Contextually, this patient had presented to the emergency room earlier in the week for similar symptoms and was thought to have a UTI. She has history of frequent UTIs, so she was placed on Bactrim and completed a course. Then, she completed a course of antibiotics and then she had a dental procedure the day after she completed it, which she received amoxicillin for. About 3 days after her dental procedure, she started to get much more confused and unsteady on her feet. She also complained of some increased shortness of breath about her baseline. In the emergency room, the patient was severely delirious and unable to answer any questions and she was given Benadryl, Versed, Haldol, and Ativan and obviously became significantly somnolent after this and was admitted to the medical service for further workup of concern for altered mental status secondary to infectious source. Her hospital course by problem is as follows: 1. Altered mental status. Culture data was taken: Blood, urine, flu swab, and chest x-ray were performed; all of which were negative for acute infectious process and the patient does have some sick contact while she was at [facility] and it is possible that she was exposed to a viral illness. She remained afebrile throughout her entire hospitalization and was not continued on antibiotics secondary to unclear source of her original of fever. By hospital day 3, after her sedation vacation, the patient woke up and felt much more like herself. Furthermore, a basic dementia workup was sent off with TSH being slightly elevated and levothyroxine dose adjusted accordingly as well as a B12 ordered, which was low at 112 and B12 supplementation was started. 2. Hypothyroidism as above. TSH was slightly elevated at night and thyroid medication was increased from 100 mcg to 112 mcg. 3. Vascular dementia. Her home aspirin was continued. 4. Hypertension. Her lisinopril and metoprolol were continued. 5. Depression. We continued her Celexa. 6. History of breast cancer. Her anastrozole was continued. 7. Hyponatremia. The patient had very mild hyponatremia on admission, this was thought to be secondary to dehydration. She was given IV fluids for 48 hours and her hyponatremia wholly resolved. Overall our impression was this patient came in with a fever of unknown origin, although likely to be viral, had negative culture data. LP was not performed but given her improvement in mental status by the 3rd day of hospitalization and complete return to baseline according to her family, it is quite unlikely the patient had viral meningitis as the source of this one-time fever. Furthermore, her course was complicated by polypharmacy and in the emergency room, which required about 2 days to recover from. On day of discharge, the patient is ambulating with her walker unassisted. She is tolerating her diet. She is awake and oriented to herself in place, which is roughly her baseline and is very much looking forward to returning to [facility] and her daughters feel she is at baseline. Furthermore, we discussed the [facility] to further assist family in making decisions as they decide when an appropriate time is for her and her family to decide when to not return to the hospital in the event she had problems in the future. DATA OBTAINED IN THIS HOSPITALIZATION: Brain CT was done on 09/16/18, which showed no acute intracranial abnormality, an old right MCA and left [employer] infract , also age- related atrophy and mild chronic small-vessel ischemic disease. A CTA of chest and thorax was done, which showed no PE. This was performed secondary to an elevated D-dimer in the emergency room. A chest x-ray was done, which showed no active cardiopulmonary disease. Labs on day of discharge unremarkable. CBC with a white blood cell count of 4.6 , hemoglobin of 12.2, hematocrit of 36, platelets of 118. BMP showing sodium of 135, potassium 3.6, chloride of 109, carbon dioxide 20, BUN 10, creatinine 0.8, and glucose 92. Of note, vitamin B12 as above is low at 114 and TSH is elevated at 7. ITEMS TO FOLLOWUP ON POST DISCHARGE: 1. Vitamin B deficiency. This patient got 1 injection of 1000 mcg IM B12 while in the hospital and her family has started her on oral supplementation. Her B12 levels can be followed in the outpatient setting and furthermore, she may be a candidate for a monthly IM B12 shots. 2. Hypothyroidism. I am unclear if this actually is contributed to altered mental status whatsoever. It does seem like it was more acutely infectious in process, although we did slightly increase her levothyroxine to 112 mcg. Plan of care was discussed with the patient and her family and they agree with discharge back to [facility] as they feel she is at her baseline. She will follow up with her primary care provider and overall they have no further questions and are stable for discharge on 09/19/18. TIME SPENT: Thirty five minutes were spent on the planning of this discharge with over half of that spent directly at the bedside providing direct patient care. If there are any questions regarding the care of this patient, please do not hesitate to reach out. [id number]/[facility] #: [id number] YANI
== END 2018-09-19 15:14 | disposition home or self-care (01) | DRG 866 ==
LOC: ED 20:30 → MEDTELE 09-17 04:05
PROVIDERS: ADMIT Hospitalist; ATTEND Internal Medicine
DX: B34.9 Viral infection, unspecified (principal); E87.1 Hypo-osmolality and hyponatremia; N17.9 Acute kidney failure, unspecified; R41.82 Altered mental status, unspecified; E86.0 Dehydration; F01.50 Vascular dementia, unspecified severity, without behavioral disturbance, psychotic disturbance, mood disturbance, and anxiety; I48.91 Unspecified atrial fibrillation; R50.9 Fever, unspecified; I10 Essential (primary) hypertension; E03.9 Hypothyroidism, unspecified; E53.8 Deficiency of other specified B group vitamins; Z66 Do not resuscitate; F32.9 Major depressive disorder, single episode, unspecified; Z96.653 Presence of artificial knee joint, bilateral; Z86.73 Personal history of transient ischemic attack (TIA), and cerebral infarction without residual deficits; Z87.440 Personal history of urinary (tract) infections; Z85.3 Personal history of malignant neoplasm of breast; Z88.5 Allergy status to narcotic agent; Z88.8 Allergy status to other drugs, medicaments and biological substances; Z82.5 Family history of asthma and other chronic lower respiratory diseases; Z80.41 Family history of malignant neoplasm of ovary; Z87.891 Personal history of nicotine dependence
CPT/HCPCS: 36415; 70450; 71045; 71275; 80048; 80053; 81003; 81015; 82607; 83605; 84443; 84484; 85025; 85379; 85610; 85730; 86140; 87040; 87086; 93005; 99284; A9270-GY; G8978-GP-CI; G8979-GP-CI; G8980-GP-CI; J1630; J1644; J1650; J2060; J2250; J3420; Q9967